=== PATIENT | female | born 1965 | race Caucasian/White ===

== ENCOUNTER → 2016-06-28 | Outpatient (CLI) | payer MEDICARE, MEDICAID ==
[~2016-06-28] MED LIST: /AMIT25TA NG; /FENT25PA TD; CELE20TA PO; CLARITAN PO; CLON-412 PO; COLA50CA3 PO; CRES20TA PO; HYDR-3719 PO; OPAN10TA17 PO; OXYC10TA97 PO; OXYC1TAB16 PO; OXYC5CAP2 PO; PREM0.626 PO; SOMA350T OR; SYNT150T OR; TRAM50TA2 OR; TRAM50TA2 PO; VICO5TAB PO
--- NOTE | 2016-07-14 01:27 | ECWPNPC ---
PATIENT NAME: APRIL PARMAR : 1965 GENDER: FEMALE VISIT DATE: 06/28/2016 DISCHARGE DATE: 06/28/16 1447 VISIT LOCKED DATE TIME: PHYSICIAN: JOHNATHON JOHN RESOURCE: JOHNATHON JOHN REASON FOR APPOINTMENT 1. LBP HISTORY OF PRESENT ILLNESS HISTORY OF PRESENT ILLNESS: HERE FOR ROUTINE F/U AND MANAGEMENT OF CHRONIC NECK AND LBP.RATING PAIN VAS 7/10.CURRENTLY USING OXYCODONE 15 MG Q4H PRN SEVERE PAIN MDD5.ALSO USING OXYCONTIN 15MG BID AND TIZANIDINE 4MG TID.MEDICATION IS HELPFUL. DENIES SIDE EFFECTS OF MEDICATION.CONTINUES TO RECIEVE INJECTION THERAPY FOR PELVIC PAIN.CHIEF AREA OF PAIN IS THORACIC SPINE. PAIN THE PATIENT DESCRIBES THE PAIN... THE PATIENT DESCRIBES THE PAIN... THE PATIENT DESCRIBES THE PAIN... THE PATIENT DESCRIBES THE PAIN... FALL RISK SCREENING: SCREENING :NO FALLS IN THE PAST YEAR CURRENT MEDICATIONS TAKING PREMARIN 0.625 MG TABLET 1 TABLET ORALLY ONCE DAILY TAKING SYNTHROID 150 MCG TABLET 1 TABLET ORALLY ONCE A DAY TAKING LIPITOR _ TABLET 1 TABLET ORALLY ONCE A DAY TAKING TIZANIDINE HCL 4 MG TABLET 1 TABLET NEEDED ORALLY THREE TIMES A DAY TAKING OXYCODONE HCL 15 MG TABLET 1 TABLET NEEDED ORALLY Q4-6H PRN PAIN MDD5 TAKING OXYCONTIN 15 MG TABLET EXTENDED RELEASE 12 HOUR 1 TABLET ORALLY TID TAKING ACCUTANE 40 MG CAPSULE ORALLY BID NOT-TAKING NUCYNTA ER 150 MG TABLET EXTENDED RELEASE 12 HOUR 1 TABLET ORALLY EVERY 12 HRS MDD2 NOT-TAKING TRAMADOL HCL ER 50 MG TABLET 1 TABLET ORALLY [id number] DISCONTINUED OXYCODONE HCL ER 15 MG TABLET ER 12 HOUR ABUSE-DETERRENT 1 TABLET ORALLY Q8H TID MDD3 MEDICATION LIST REVIEWED AND RECONCILED WITH THE PATIENT PAST MEDICAL HISTORY HEAD INJURY WITH SOME APHASIA DDD ALLERGIES LATEX (FOR ALLERGY USE ONLY): HIVES,TERRIBLE SORES: ALLERGY SOCIAL HISTORY GENERAL: TOBACCO USE ARE YOU A:NONSMOKER LEARNING BARRIERS / SPECIAL NEEDS ORIENTED TO PLAN OF CARE: PATIENT, PAIN MANAGEMENT PATIENT, ORIENTED TO PLAN OF CARE: PATIENT, PAIN MANAGEMENT PATIENT. NEW PATIENT PAIN DIARY TODAY'S VISITNOTES FROM 0-10, WHAT LEVEL IS YOUR PAIN TODAY?0 PAIN CLINIC PFS, CLERGY, PUBLIC HEALTH REFERRALS PFS REFERRAL NEEDED?NO CLERGY REFERRAL NEEDED?NO PUBLIC HEALTH REFERRAL NEEDED?NO WAS THE PROVIDER NOTIFIED OF ANY PERTINENT INFO?NO PFS REFERRAL NEEDED?NO CLERGY REFERRAL NEEDED?NO PUBLIC HEALTH REFERRAL NEEDED?NO WAS THE PROVIDER NOTIFIED OF ANY PERTINENT INFO?NO REVIEW OF SYSTEMS CONSTITUTIONAL: ANY CHANGE IN YOUR MEDICAL CONDITION? YES, NERVE IMPINGEMENT BILAT. SHOULDERS. SURGERY TO BE SCHEDULED IN [place] . CHILLS NO . FEVER NO . INFECTION: DO YOU HAVE NEW INFECTIONS? NO . DO YOU HAVE HISTORY OF MRSA? NO . MUSCULOSKELETAL: ANY NEW PATTERNS OF PAIN OR NUMBNESS? NO . GASTROENTEROLOGY: ANY NEW CHANGE IN BOWEL CONTROL? NO . GENITOURINARY: ANY NEW CHANGE IN BLADDER CONTROL? NO . IS THERE A CHANCE YOU COULD BE ? NO . HEMATOLOGY/LYMPH: DO YOU TAKE ANY BLOOD THINNERS? (FOR EXAMPLE- COUMADIN, PLAVIX, AGGRENOX, PLATEL, PRADAXA, OR XARELTO) NO . WHEN WAS YOUR LAST DOSE? DATE: TIME: . NEUROLOGY: HAVE YOU FALLEN IN THE PAST 6 MONTHS? NO . ANY NEW EXTREMITY NUMBNESS OR WEAKNESS? NO . CARDIOLOGY: DO YOU HAVE A PACEMAKER OR DEFIBRILLATOR? NO . RESPIRATORY: HAVE YOU BEEN SICK IN THE PAST WEEK? NO . FEVER NO . FLU LIKE SYMPTOMS? NO . COUGH NO . INTEGUMENTARY: DO YOU HAVE ANY RASHES OR OPEN SORES? NO . ALLERGIC/IMMUNO: ARE YOU ALLERGIC TO SHELLFISH OR IV DYE? NO . ANY NEW ALLERGIES? NO . PSYCHIATRIC: DO YOU HAVE THOUGHTS OF HURTING YOURSELF OR SOMEONE ELSE? NO . ARE YOU ABUSED, NEGLECTED, OR IN AN UNSAFE ENVIRONMENT? NO . ENDOCRINOLOGY: ARE YOU DIABETIC? NO . OTHER: DO YOU NEED ANY PRESCRIPTIONS? YES, OXYCONTIN AND OXYCODONE . IF YES, PLEASE LIST: ____ . ANY NEW PROBLEMS WITH YOUR MEDICATIONS? NO . WHEN DID YOU LAST EAT? ____ . WHEN DID YOU LAST DRINK? ____ . WHAT DID YOU LAST DRINK? ____ . NAME OF PERSON DRIVING YOU HOME? ____ . DO YOU HAVE ANY OTHER QUESTIONS OR CONCERNS NO . REVIEWED BY: PROVIDER: JOHNATHON ROSENBERG . VITAL SIGNS WT 173 LBS, HT 66 IN, BMI 27.92 INDEX, BP 128/83 MM HG, HR 67 /MIN, RR 16 /MIN, TEMP 97.9 F, OXYGEN SAT % 100, REVIEWED BY: AD. EXAMINATION GENERAL EXAMINATION: LUNGS:LUNG SOUNDS ARE CLEAR. HEART:HEART RATE REGULAR. MUSCULOSKELETAL:*. MUSCULOSKELETAL:*, MUSCLE STRENGTH TESTING 5/5 BILATERAL, PALPATION: POSITIVE FOR PAIN OVER L/S SPINE. POSITIVE FOR PAIN OVER L/S PARSPINALS. ASSESSMENTS POST LAMINECTOMY SYNDROME - M96.1 (PRIMARY) CHRONIC PRESCRIPTION OPIATE USE - Z79.891 TREATMENT POST LAMINECTOMY SYNDROME CONTINUE TIZANIDINE HCL TABLET, 4 MG, 1 TABLET NEEDED, ORALLY, THREE TIMES A DAY, 30 DAY(S), 90 TABLET, REFILLS 5 REFILL OXYCODONE HCL TABLET, 15 MG, 1 TABLET NEEDED, ORALLY, Q4-6H PRN PAIN MDD5, 30 DAY(S), 150, REFILLS 0 REFILL OXYCONTIN TABLET EXTENDED RELEASE 12 HOUR, 15 MG, 1 TABLET, ORALLY, TID MDD3, 30 DAY(S), 90, REFILLS 0 START OXYCODONE HCL ER TABLET ER 12 HOUR ABUSE-DETERRENT, 15 MG, 1 TABLET, ORALLY, Q8H TID MDD3, 30 DAY(S), 90, REFILLS 0 PROCEDURE CODES FA211 ESTABILISHED PATIENT [facility] CHARGE G8730 PAIN ASSESS POS TOOL F/U PLAN DOC G8427 DOC MEDS VERIFIED W/PT OR RE FOLLOW UP 2 MONTHS ELECTRONICALLY SIGNED BY SHAKIRA MCNAIR ON 07/12/2016 AT 11:05 AM EST DISCLAIMER : THIS IS A VISIT SUMMARY EXTRACTED FROM THE [facility] CHART. IT IS NOT A COPY OF THE [facility] PROGRESS NOTE. MTDD
== END ==
LOC: M PAIN 14:00
PROVIDERS: ATTEND Nurse Practitioner Family
DX: Z09 Encounter for follow-up examination after completed treatment for conditions other than malignant neoplasm (principal); G89.29 Other chronic pain; M96.1 Postlaminectomy syndrome, not elsewhere classified; M51.9 Unspecified thoracic, thoracolumbar and lumbosacral intervertebral disc disorder; Z91.040 Latex allergy status; Z79.891 Long term (current) use of opiate analgesic; Z79.899 Other long term (current) drug therapy; Z87.820 Personal history of traumatic brain injury

== ENCOUNTER → 2016-08-26 | Outpatient (CLI) | payer MEDICARE, MEDICAID ==
[2016-08-26 11:37] LABS: ALBUMIN/GLOBULIN RATIO 1.05 (1.00-1.93); ALKALINE PHOSPHATASE 156 U/L (45-117); ALT/SGPT 22 U/L (12-78); ANION GAP 9 MEQ/L (8-16); AST/SGOT 20 U/L (15-37); BILIRUBIN,TOTAL 0.4 MG/DL (0.2-1.0); BLOOD UREA NITROGEN 20 MG/DL (7-18); CALCIUM LEVEL 9.4 MG/DL (8.5-10.1); CARBON DIOXIDE LEVEL 30 MEQ/L (21-32); CHLORIDE LEVEL 102 MEQ/L (98-107); CREATININE FOR GFR 0.65 MG/DL (0.55-1.02); GLOMERULAR FILTRATION RATE > 60.0 (>51); GLUCOSE, FASTING 94 MG/DL (70-105); POTASSIUM SERUM 4.5 MEQ/L (3.5-5.1); SODIUM LEVEL 141 MEQ/L (136-145); TOTAL PROTEIN 7.8 GM/DL (6.4-8.2); TRIGLYCERIDES LEVEL 243 MG/DL (<150)
== END ==
LOC: M LAB 10:23
PROVIDERS: ATTEND Dermatology
DX: Z79.899 Other long term (current) drug therapy (principal)

== ENCOUNTER → 2016-09-06 | Outpatient (CLI) | payer MEDICARE, MEDICAID ==
--- NOTE | 2016-09-14 01:33 | ECWPNPC ---
PATIENT NAME: APRIL PARMAR : 1965 GENDER: FEMALE VISIT DATE: 09/06/2016 DISCHARGE DATE: 09/06/16 1529 VISIT LOCKED DATE TIME: PHYSICIAN: JOHNATHON JOHN RESOURCE: JOHNATHON JOHN REASON FOR APPOINTMENT 1. BACK HISTORY OF PRESENT ILLNESS HISTORY OF PRESENT ILLNESS: HERE FOR ROUTINE F/U AND MANAGEMENT OF CHRONIC NECK AND LBP.RATING PAIN VAS 6/10.CURRENTLY USING OXYCODONE 15 MG Q4H PRN SEVERE PAIN MDD5.ALSO USING OXYCONTIN 15MG BID AND TIZANIDINE 4MG TID.MEDICATION IS ONLY MARGINALLY HELPFUL AND FINDS HER PAIN UNBEARABLE IN LATE AFTERNOON. DENIES SIDE EFFECTS OF MEDICATION.CONTINUES TO RECIEVE INJECTION THERAPY FOR PELVIC PAIN.PATIENT IS INTERESTED IN BEING EVALUATED FOR MEDICAL MARIJUANA. PAIN THE PATIENT DESCRIBES THE PAIN... THE PATIENT DESCRIBES THE PAIN... THE PATIENT DESCRIBES THE PAIN... THE PATIENT DESCRIBES THE PAIN... THE PATIENT DESCRIBES THE PAIN... FALL RISK SCREENING: SCREENING :NO FALLS IN THE PAST YEAR CURRENT MEDICATIONS TAKING PREMARIN 0.625 MG TABLET 1 TABLET ORALLY ONCE DAILY TAKING SYNTHROID 150 MCG TABLET 1 TABLET ORALLY ONCE A DAY TAKING LIPITOR _ TABLET 1 TABLET ORALLY ONCE A DAY TAKING TIZANIDINE HCL 4 MG TABLET 1 TABLET NEEDED ORALLY THREE TIMES A DAY TAKING OXYCONTIN 15 MG TABLET EXTENDED RELEASE 12 HOUR 1 TABLET ORALLY TID MDD3 TAKING OXYCODONE HCL 15 MG TABLET 1 TABLET NEEDED ORALLY Q4-6H PRN PAIN MDD5 TAKING OXYCODONE HCL ER 15 MG TABLET ER 12 HOUR ABUSE-DETERRENT 1 TABLET ORALLY Q8H TID MDD3 TAKING ACCUTANE 30 MGS 1 TAB ORAL BID NOT-TAKING OXYCODONE HCL ER 15 MG TABLET ER 12 HOUR ABUSE-DETERRENT 1 TABLET ORALLY Q8H TID MDD3 NOT-TAKING NUCYNTA ER 150 MG TABLET EXTENDED RELEASE 12 HOUR 1 TABLET ORALLY EVERY 12 HRS MDD2 NOT-TAKING TRAMADOL HCL ER 50 MG TABLET 1 TABLET ORALLY [id number] DISCONTINUED ACCUTANE 40 MG CAPSULE ORALLY BID DISCONTINUED OXYCONTIN 15 MG TABLET ER 12 HOUR ABUSE-DETERRENT 1 TABLET ORALLY Q8H TID MDD3 DISCONTINUED ACCUTANE 1 TAB ORAL DISCONTINUED OXYCODONE HCL 15 MG TABLET 1 TABLET NEEDED ORALLY 5 X/ DAY PRN MEDICATION LIST REVIEWED AND RECONCILED WITH THE PATIENT PAST MEDICAL HISTORY HEAD INJURY WITH SOME APHASIA DDD DJD ALLERGIES LATEX (FOR ALLERGY USE ONLY): HIVES,TERRIBLE SORES: ALLERGY SOCIAL HISTORY GENERAL: TOBACCO USE ARE YOU A:NONSMOKER LEARNING BARRIERS / SPECIAL NEEDS ORIENTED TO PLAN OF CARE: PATIENT, PAIN MANAGEMENT PATIENT, ORIENTED TO PLAN OF CARE: PATIENT, PAIN MANAGEMENT PATIENT. NEW PATIENT PAIN DIARY TODAY'S VISITNOTES FROM 0-10, WHAT LEVEL IS YOUR PAIN TODAY?0 PAIN CLINIC PFS, CLERGY, PUBLIC HEALTH REFERRALS PFS REFERRAL NEEDED?NO CLERGY REFERRAL NEEDED?NO PUBLIC HEALTH REFERRAL NEEDED?NO WAS THE PROVIDER NOTIFIED OF ANY PERTINENT INFO?NO PFS REFERRAL NEEDED?NO CLERGY REFERRAL NEEDED?NO PUBLIC HEALTH REFERRAL NEEDED?NO WAS THE PROVIDER NOTIFIED OF ANY PERTINENT INFO?NO REVIEW OF SYSTEMS CONSTITUTIONAL: ANY CHANGE IN YOUR MEDICAL CONDITION? YES DIAGNOSED WITH DJD . CHILLS NO . FEVER NO . INFECTION: DO YOU HAVE NEW INFECTIONS? NO . DO YOU HAVE HISTORY OF MRSA? NO . MUSCULOSKELETAL: ANY NEW PATTERNS OF PAIN OR NUMBNESS? YES, INCREASED PAIN IN JOINTS ALL OVER . GASTROENTEROLOGY: ANY NEW CHANGE IN BOWEL CONTROL? NO . GENITOURINARY: ANY NEW CHANGE IN BLADDER CONTROL? NO . IS THERE A CHANCE YOU COULD BE ? NO . HEMATOLOGY/LYMPH: DO YOU TAKE ANY BLOOD THINNERS? (FOR EXAMPLE- COUMADIN, PLAVIX, AGGRENOX, PLATEL, PRADAXA, OR XARELTO) NO . WHEN WAS YOUR LAST DOSE? DATE: TIME: . NEUROLOGY: HAVE YOU FALLEN IN THE PAST 6 MONTHS? YES IN JUNE--HIT HEAD WITH LOC SEEN IN ER IN [place] . ANY NEW EXTREMITY NUMBNESS OR WEAKNESS? NO . CARDIOLOGY: DO YOU HAVE A PACEMAKER OR DEFIBRILLATOR? NO . RESPIRATORY: HAVE YOU BEEN SICK IN THE PAST WEEK? NO . FEVER NO . FLU LIKE SYMPTOMS? NO . COUGH NO . INTEGUMENTARY: DO YOU HAVE ANY RASHES OR OPEN SORES? NO . ALLERGIC/IMMUNO: ARE YOU ALLERGIC TO SHELLFISH OR IV DYE? NO . ANY NEW ALLERGIES? NO . PSYCHIATRIC: DO YOU HAVE THOUGHTS OF HURTING YOURSELF OR SOMEONE ELSE? NO . ARE YOU ABUSED, NEGLECTED, OR IN AN UNSAFE ENVIRONMENT? NO . ENDOCRINOLOGY: ARE YOU DIABETIC? NO . OTHER: DO YOU NEED ANY PRESCRIPTIONS? YES . IF YES, PLEASE LIST: ____OXYCODONE, OXYCONTIN AND TIZANIDINE . ANY NEW PROBLEMS WITH YOUR MEDICATIONS? NO . WHEN DID YOU LAST EAT? ____ . WHEN DID YOU LAST DRINK? ____ . WHAT DID YOU LAST DRINK? ____ . NAME OF PERSON DRIVING YOU HOME? ____ . DO YOU HAVE ANY OTHER QUESTIONS OR CONCERNS NO . REVIEWED BY: PROVIDER: JOHNATHON ROSENBERG . VITAL SIGNS WT 177.6 LBS, HT 66 IN, BMI 28.66 INDEX, BP 140/74 MM HG, HR 75 /MIN, RR 18 /MIN, TEMP 97.5 F, OXYGEN SAT % 97, NA INITIALS HS, REVIEWED BY: AD. EXAMINATION GENERAL EXAMINATION: LUNGS:LUNG SOUNDS ARE CLEAR. HEART:HEART RATE REGULAR. MUSCULOSKELETAL:*. MUSCULOSKELETAL:*, MUSCLE STRENGTH TESTING 5/5 BILATERAL, PALPATION: POSITIVE FOR PAIN OVER L/S SPINE. POSITIVE FOR PAIN OVER L/S PARSPINALS. ASSESSMENTS POST LAMINECTOMY SYNDROME - M96.1 (PRIMARY) CHRONIC PRESCRIPTION OPIATE USE - Z79.891 TREATMENT POST LAMINECTOMY SYNDROME CONTINUE TIZANIDINE HCL TABLET, 4 MG, 1 TABLET NEEDED, ORALLY, THREE TIMES A DAY REFILL OXYCODONE HCL TABLET, 15 MG, 1 TABLET NEEDED, ORALLY, Q4-6H PRN PAIN MDD5, 30 DAY(S), 150, REFILLS 0 START GABAPENTIN CAPSULE, 100 MG, DIRECTED, ORALLY, Q8H, 30 DAY(S), 90, REFILLS 2 START OXYCODONE HCL ER TABLET ER 12 HOUR ABUSE-DETERRENT, 15 MG, 1 TABLET, ORALLY, Q8H MDD3, 30 DAY(S), 90, REFILLS 0 REFERRAL TO: [facility] REASON:EVALUATION FOR MEDICAL MARIJUANA-DX POST LAMINECTOMY PAIN SYNDROME/CHRONIC OPIODS INEFFECTIVE PREVENTIVE MEDICINE PAIN CLINIC TEACHING: MEDITATION PRINTED INFORMATION ON GABAPENTIN GIVEN TO AND EXPLAINED TO PATIENT AND SHE VERBALIZED UNDERSTANDIN.. PROCEDURE CODES FA211 ESTABILISHED PATIENT [facility] FACILITY CHARGE G8730 PAIN ASSESS POS TOOL F/U PLAN DOC G8427 DOC MEDS VERIFIED W/PT OR RE DISPOSITION & COMMUNICATION FOLLOW UP 6 WEEKS ELECTRONICALLY SIGNED BY SHAKIRA MCNAIR ON 09/13/2016 AT 05:50 PM EDT DISCLAIMER : THIS IS A VISIT SUMMARY EXTRACTED FROM THE [facility] CHART. IT IS NOT A COPY OF THE [employer] PROGRESS NOTE. MTDD
== END ==
LOC: M PAIN 14:20
PROVIDERS: ATTEND Nurse Practitioner Family
DX: Z09 Encounter for follow-up examination after completed treatment for conditions other than malignant neoplasm (principal); M96.1 Postlaminectomy syndrome, not elsewhere classified; R47.01 Aphasia; Z91.040 Latex allergy status; M19.90 Unspecified osteoarthritis, unspecified site; Z79.891 Long term (current) use of opiate analgesic; Z79.899 Other long term (current) drug therapy; Z87.820 Personal history of traumatic brain injury

== ENCOUNTER → 2017-01-04 | Outpatient (CLI) | payer MEDICARE, MEDICAID ==
--- NOTE | 2017-01-21 00:23 | ECWPNPC ---
PATIENT NAME: APRIL PARMAR : 1965 GENDER: FEMALE VISIT DATE: 01/04/2017 DISCHARGE DATE: 01/04/17 1534 VISIT LOCKED DATE TIME: PHYSICIAN: JOHNATHON JOHN RESOURCE: JOHNATHON JOHN REASON FOR APPOINTMENT 1. BACK HISTORY OF PRESENT ILLNESS HISTORY OF PRESENT ILLNESS: HERE FOR ROUTINE F/U AND MANAGEMENT OF CHRONIC NECK AND LBP.RATING PAIN VAS 7/10.AT HER LAST VISIT WE INCREASED OXYCONTIN TO 15MG TID AND STARTED ON GABAPENTIN 100MG TID.STOPPED GABAPENTIN IT WAS CAUSING TOO MUCH FATIGUE. ALSO USING TIZANIDINE 4MG TID AND OXYCODONE 15MG Q4-6H PRN FOR SEVERE PAIN WITH MDD 5..DENIES SIDE EFFECTS OF MEDICATION.CONTINUES TO RECIEVE INJECTION THERAPY FOR PELVIC PAIN.PATIENT WAS EVALUATED FOR MEDICAL MARIJUANA AND CURRENTLY USING THIS AT WITH IMPROVED SLEEP. PAIN THE PATIENT DESCRIBES THE PAIN... THE PATIENT DESCRIBES THE PAIN... THE PATIENT DESCRIBES THE PAIN... THE PATIENT DESCRIBES THE PAIN... THE PATIENT DESCRIBES THE PAIN... THE PATIENT DESCRIBES THE PAIN... FALL RISK SCREENING: SCREENING :NO FALLS IN THE PAST YEAR CURRENT MEDICATIONS TAKING PREMARIN 0.625 MG TABLET 1 TABLET ORALLY ONCE DAILY TAKING SYNTHROID 150 MCG TABLET 1 TABLET ORALLY ONCE A DAY TAKING LIPITOR _ TABLET 1 TABLET ORALLY ONCE A DAY TAKING TIZANIDINE HCL 4 MG TABLET 1 TABLET NEEDED ORALLY THREE TIMES A DAY TAKING OXYCODONE HCL 15 MG TABLET 1 TABLET NEEDED ORALLY Q4-6H PRN PAIN MDD5 TAKING OXYCONTIN 15 MG TABLET EXTENDED RELEASE 12 HOUR 1 TABLET ORALLY TID MDD3 NOT-TAKING OXYCODONE HCL ER 15 MG TABLET ER 12 HOUR ABUSE-DETERRENT 1 TABLET ORALLY Q8H TID MDD3 NOT-TAKING ACCUTANE 30 MGS 1 TAB ORAL BID NOT-TAKING GABAPENTIN 100 MG CAPSULE DIRECTED ORALLY Q8H NOT-TAKING OXYCODONE HCL ER 15 MG TABLET ER 12 HOUR ABUSE-DETERRENT 1 TABLET ORALLY Q8H MDD3 NOT-TAKING OXYCODONE HCL ER 15 MG TABLET ER 12 HOUR ABUSE-DETERRENT 1 TABLET ORALLY Q8H TID MDD3 NOT-TAKING OXYCODONE HCL ER 15 MG TABLET ER 12 HOUR ABUSE-DETERRENT 1 TABLET ORALLY Q8H TID MDD3 NOT-TAKING OXYCODONE HCL ER 15 MG TABLET ER 12 HOUR ABUSE-DETERRENT 1 TABLET ORALLY Q8H MDD3 NOT-TAKING OXYCODONE HCL ER 15 MG TABLET ER 12 HOUR ABUSE-DETERRENT 1 TABLET ORALLY Q8H TID MDD3 NOT-TAKING NUCYNTA ER 150 MG TABLET EXTENDED RELEASE 12 HOUR 1 TABLET ORALLY EVERY 12 HRS MDD2 NOT-TAKING TRAMADOL HCL ER 50 MG TABLET 1 TABLET ORALLY [id number] MEDICATION LIST REVIEWED AND RECONCILED WITH THE PATIENT PAST MEDICAL HISTORY HEAD INJURY WITH SOME APHASIA DDD DJD ALLERGIES LATEX (FOR ALLERGY USE ONLY): HIVES,TERRIBLE SORES: ALLERGY SURGICAL HISTORY NECK FUSION 11/07/15 RIGHT KNEE ARTHROSCOPY RIGHT WRIST CARPAL TUNNEL RIGHT SHOULDER CARTILAGE CHOLECYSTECTOMY HYSTERECTOMY 4 C SECTIONS ABD INCISION REPAIR BACK SURGERY X3 DCS PLACED/REMOVED REVIEW OF SYSTEMS REVIEWED BY: PROVIDER: JOHNATHON ROSENBERG . CONSTITUTIONAL: ANY CHANGE IN YOUR MEDICAL CONDITION? NO . CHILLS NO . FEVER NO . INFECTION: DO YOU HAVE NEW INFECTIONS? NO . DO YOU HAVE HISTORY OF MRSA? NO . MUSCULOSKELETAL: ANY NEW PATTERNS OF PAIN OR NUMBNESS? NO . GASTROENTEROLOGY: ANY NEW CHANGE IN BOWEL CONTROL? NO . GENITOURINARY: ANY NEW CHANGE IN BLADDER CONTROL? NO . IS THERE A CHANCE YOU COULD BE ? NO . HEMATOLOGY/LYMPH: DO YOU TAKE ANY BLOOD THINNERS? (FOR EXAMPLE- COUMADIN, PLAVIX, AGGRENOX, PLATEL, PRADAXA, OR XARELTO) NO . WHEN WAS YOUR LAST DOSE? DATE: TIME: . NEUROLOGY: HAVE YOU FALLEN IN THE PAST 6 MONTHS? NO . ANY NEW EXTREMITY NUMBNESS OR WEAKNESS? NO . CARDIOLOGY: DO YOU HAVE A PACEMAKER OR DEFIBRILLATOR? NO . RESPIRATORY: HAVE YOU BEEN SICK IN THE PAST WEEK? NO . FEVER NO . FLU LIKE SYMPTOMS? NO . COUGH NO . INTEGUMENTARY: DO YOU HAVE ANY RASHES OR OPEN SORES? NO . ALLERGIC/IMMUNO: ARE YOU ALLERGIC TO SHELLFISH OR IV DYE? NO . ANY NEW ALLERGIES? NO . PSYCHIATRIC: DO YOU HAVE THOUGHTS OF HURTING YOURSELF OR SOMEONE ELSE? NO . ARE YOU ABUSED, NEGLECTED, OR IN AN UNSAFE ENVIRONMENT? NO . ENDOCRINOLOGY: ARE YOU DIABETIC? NO . OTHER: DO YOU NEED ANY PRESCRIPTIONS? YES, OXYCODONE, OXYCONTIN, TIZANIDINE . IF YES, PLEASE LIST: ____ . ANY NEW PROBLEMS WITH YOUR MEDICATIONS? NO . WHEN DID YOU LAST EAT? ____ . WHEN DID YOU LAST DRINK? ____ . WHAT DID YOU LAST DRINK? ____ . NAME OF PERSON DRIVING YOU HOME? ____ . DO YOU HAVE ANY OTHER QUESTIONS OR CONCERNS NO . VITAL SIGNS WT 175 LBS, HT 66 IN, BMI 28.24 INDEX, BP 117/72 MM HG, HR 82 /MIN, RR 18 /MIN, TEMP 98.1 F, OXYGEN SAT % 93, SAFE IN ENV? (Y/N) Y, REVIEWED BY: EM. EXAMINATION GENERAL EXAMINATION: LUNGS:LUNG SOUNDS ARE CLEAR. HEART:HEART RATE REGULAR. MUSCULOSKELETAL:*. MUSCULOSKELETAL:*, MUSCLE STRENGTH TESTING 5/5 BILATERAL, PALPATION: POSITIVE FOR PAIN OVER L/S SPINE. POSITIVE FOR PAIN OVER L/S PARSPINALS. ASSESSMENTS POST LAMINECTOMY SYNDROME - M96.1 (PRIMARY) CHRONIC PRESCRIPTION OPIATE USE - Z79.891 TREATMENT POST LAMINECTOMY SYNDROME REFILL TIZANIDINE HCL TABLET, 4 MG, 1 TABLET NEEDED, ORALLY, THREE TIMES A DAY, 30 DAY(S), 90 TABLET, REFILLS 2 REFILL OXYCODONE HCL TABLET, 15 MG, 1 TABLET NEEDED, ORALLY, Q4-6H PRN PAIN MDD5, 30 DAY(S), 150, REFILLS 0 REFILL OXYCODONE HCL ER TABLET ER 12 HOUR ABUSE-DETERRENT, 15 MG, 1 TABLET, ORALLY, Q8H TID MDD3, 30 DAY(S), 90, REFILLS 0 NOTES: ISTOP REGISTRY REVIEWED AND DEMNOSTRATES COMPLLIANCE. BRINGS IN MEDICATIONS WHICH IS APPROPRIATE FOR WHAT WAS DISPENSED. RECENT URINE TOXICOLOGY REVIEWED. NO UNAUTHORIZED MEDICATIONS. NO ILLICIT SUBSTANCES AND PRESCRIBED MEDICATIONS WERE PRESENT. URINE TOX TODAY, RISKS AND BENEFITS OF NARCOTIC/OPIOD MEDICATIONS WERE REVIEWED WITH PATIENT - THIS INCLUDES BUT IS NOT LIMITED TO RISK OF DEPENDANCE/DEVELOPMENT OF ADDICTION, MOOD DISTURBANCE AND DEPRESSION, OSTEOPOROSIS, HORMONAL AND LABIDAL CHANGES, RESPIRATORY DEPRESSION AND . PATIENT IS ADVISED NOT TO DRIVE WHILE ON THESE MEDICATIONS. PROCEDURE CODES FA211 ESTABILISHED PATIENT [facility] FACILITY CHARGE Z8272 PAIN ASSESS POS TOOL F/U PLAN DOC G8427 DOC MEDS VERIFIED W/PT OR RE DISPOSITION & COMMUNICATION FOLLOW UP 2 MONTHS ELECTRONICALLY SIGNED BY SHAKIRA MCNAIR ON 01/20/2017 AT 05:41 PM EDT DISCLAIMER : THIS IS A VISIT SUMMARY EXTRACTED FROM THE [employer] CHART. IT IS NOT A COPY OF THE [employer] PROGRESS NOTE. IVY
== END ==
LOC: M PAIN 14:40
PROVIDERS: ATTEND Nurse Practitioner Family
DX: M96.1 Postlaminectomy syndrome, not elsewhere classified (principal); M54.2 Cervicalgia; M54.5 Low back pain; Z91.040 Latex allergy status; Z79.891 Long term (current) use of opiate analgesic; Z79.899 Other long term (current) drug therapy

== ENCOUNTER → 2017-03-07 | Outpatient (CLI) | payer MEDICARE, MEDICAID ==
--- NOTE | 2017-03-27 00:02 | ECWPNPC ---
PATIENT NAME: APRIL PARMAR : 1965 GENDER: FEMALE VISIT DATE: 03/07/2017 DISCHARGE DATE: 03/07/17 1441 VISIT LOCKED DATE TIME: PHYSICIAN: JOHNATHON JOHN RESOURCE: JOHNATHON JOHN REASON FOR APPOINTMENT 1. BACK HISTORY OF PRESENT ILLNESS HISTORY OF PRESENT ILLNESS: HERE FOR ROUTINE F/U AND MANAGEMENT OF CHRONIC NECK AND LBP.RATING PAIN VAS 6/10.AT HER LAST VISIT WE INCREASED OXYCONTIN TO 15MG TID AND STARTED ON GABAPENTIN 100MG TID.STOPPED GABAPENTIN IT WAS CAUSING TOO MUCH FATIGUE. ALSO USING TIZANIDINE 4MG TID AND OXYCODONE 15MG Q4-6H PRN FOR SEVERE PAIN WITH MDD 5..DENIES SIDE EFFECTS OF MEDICATION.CONTINUES TO RECIEVE INJECTION THERAPY FOR PELVIC PAIN.PATIENT WAS EVALUATED FOR MEDICAL MARIJUANA AND HAD IMPROVED SLEEP BUT WAS UNABLE TO GET TO DISPENSERY IN [place] MONTHLY AND PRODUCT WAS TOO COSTLY.REPORTING POOR SLEEP DUE TO PAIN. PAIN THE PATIENT DESCRIBES THE PAIN... THE PATIENT DESCRIBES THE PAIN... THE PATIENT DESCRIBES THE PAIN... THE PATIENT DESCRIBES THE PAIN... THE PATIENT DESCRIBES THE PAIN... THE PATIENT DESCRIBES THE PAIN... THE PATIENT DESCRIBES THE PAIN... FALL RISK SCREENING: SCREENING :NO FALLS IN THE PAST YEAR CURRENT MEDICATIONS TAKING PREMARIN 0.625 MG TABLET 1 TABLET ORALLY ONCE DAILY TAKING SYNTHROID 150 MCG TABLET 1 TABLET ORALLY ONCE A DAY TAKING LIPITOR _ TABLET 1 TABLET ORALLY ONCE A DAY TAKING TIZANIDINE HCL 4 MG TABLET 1 TABLET NEEDED ORALLY THREE TIMES A DAY TAKING OXYCONTIN 15 MG TABLET ER 12 HOUR ABUSE-DETERRENT 1 TABLET ORALLY EVERY 8 HRS CHRONIC PAIN MDD=3 TAKING OXYCODONE HCL 15 MG TABLET 1 TABLET NEEDED ORALLY Q4-6H PRN PAIN MDD5 NOT-TAKING OXYCONTIN 15 MG TABLET EXTENDED RELEASE 12 HOUR 1 TABLET ORALLY TID MDD3 NOT-TAKING OXYCODONE HCL ER 15 MG TABLET ER 12 HOUR ABUSE-DETERRENT 1 TABLET ORALLY Q8H TID MDD3 NOT-TAKING ACCUTANE 30 MGS 1 TAB ORAL BID NOT-TAKING GABAPENTIN 100 MG CAPSULE DIRECTED ORALLY Q8H NOT-TAKING OXYCODONE HCL ER 15 MG TABLET ER 12 HOUR ABUSE-DETERRENT 1 TABLET ORALLY Q8H MDD3 NOT-TAKING OXYCODONE HCL ER 15 MG TABLET ER 12 HOUR ABUSE-DETERRENT 1 TABLET ORALLY Q8H TID MDD3 NOT-TAKING OXYCODONE HCL ER 15 MG TABLET ER 12 HOUR ABUSE-DETERRENT 1 TABLET ORALLY Q8H TID MDD3 NOT-TAKING OXYCODONE HCL ER 15 MG TABLET ER 12 HOUR ABUSE-DETERRENT 1 TABLET ORALLY Q8H MDD3 NOT-TAKING OXYCODONE HCL ER 15 MG TABLET ER 12 HOUR ABUSE-DETERRENT 1 TABLET ORALLY Q8H TID MDD3 NOT-TAKING NUCYNTA ER 150 MG TABLET EXTENDED RELEASE 12 HOUR 1 TABLET ORALLY EVERY 12 HRS MDD2 NOT-TAKING TRAMADOL HCL ER 50 MG TABLET 1 TABLET ORALLY [id number] MEDICATION LIST REVIEWED AND RECONCILED WITH THE PATIENT PAST MEDICAL HISTORY HEAD INJURY WITH SOME APHASIA DDD DJD ALLERGIES LATEX (FOR ALLERGY USE ONLY): HIVES,TERRIBLE SORES: ALLERGY SOCIAL HISTORY GENERAL: TOBACCO USE ARE YOU A:NONSMOKER CAFFEINE CAFFEINE USE?YES HOW OFTEN AND HOW MUCH? MINIMAL TENRIISM [id number] NONE LANGUAGE LANGUAGES SPOKEN:[place] LEARNING BARRIERS / SPECIAL NEEDS BARRIERS TO LEARNING?NO HEARING IMPAIRED?NO VISION IMPAIRED?YES :CORRECTIVE LENSES COGNITIVELY IMPAIRED?NO READINESS TO LEARN?YES LEARNING PREFERENCES?NO LEARNING CAPABILITIES PRESENT?YES EMOTIONAL BARRIERS?NO SPECIAL DEVICES?NO LOCKER ATTENDANT NEEDED?NO PAIN CLINIC PFS, CLERGY, PUBLIC HEALTH REFERRALS PFS REFERRAL NEEDED?NO CLERGY REFERRAL NEEDED?NO PUBLIC HEALTH REFERRAL NEEDED?NO WAS THE PROVIDER NOTIFIED OF ANY PERTINENT INFO?YES HAS THE PATIENT BEEN EDUCATED REGARDING HIS/HER PLAN OF CARE?YES HAS THE PATIENT BEEN EDUCATED REGARDING PAIN, THE RISK FOR PAIN, THE IMPORTANCE OF EFFECTIVE PAIN MANAGEMENT, AND THE PAIN ASSESSMENT PROCESS?YES REVIEWED BY: DS. ADVANCE DIRECTIVES HEALTH CARE PROXY?NO WOULD YOU LIKE MORE INFORMATION?NO DO YOU HAVE A DNR?NO WOULD YOU LIKE MORE INFORMATION?NO LIVING WILL?NO WOULD YOU LIKE MORE INFORMATION?NO POWER OF CRM ANALYST?NO WOULD YOU LIKE MORE INFORMATION?NO REVIEW OF SYSTEMS REVIEWED BY: PROVIDER: JOHNATHON ROSENBERG . CONSTITUTIONAL: ANY CHANGE IN YOUR MEDICAL CONDITION? NO . CHILLS NO . FEVER NO . INFECTION: DO YOU HAVE NEW INFECTIONS? NO . DO YOU HAVE HISTORY OF MRSA? NO . MUSCULOSKELETAL: ANY NEW PATTERNS OF PAIN OR NUMBNESS? NO . GASTROENTEROLOGY: ANY NEW CHANGE IN BOWEL CONTROL? NO . GENITOURINARY: ANY NEW CHANGE IN BLADDER CONTROL? NO . IS THERE A CHANCE YOU COULD BE ? NO . HEMATOLOGY/LYMPH: DO YOU TAKE ANY BLOOD THINNERS? (FOR EXAMPLE- COUMADIN, PLAVIX, AGGRENOX, PLATEL, PRADAXA, OR XARELTO) NO . WHEN WAS YOUR LAST DOSE? DATE: TIME: . NEUROLOGY: HAVE YOU FALLEN IN THE PAST 6 MONTHS? YES . ANY NEW EXTREMITY NUMBNESS OR WEAKNESS? NO . CARDIOLOGY: DO YOU HAVE A PACEMAKER OR DEFIBRILLATOR? NO . RESPIRATORY: HAVE YOU BEEN SICK IN THE PAST WEEK? NO . FEVER NO . FLU LIKE SYMPTOMS? NO . COUGH NO . INTEGUMENTARY: DO YOU HAVE ANY RASHES OR OPEN SORES? NO . ALLERGIC/IMMUNO: ARE YOU ALLERGIC TO SHELLFISH OR IV DYE? NO . ANY NEW ALLERGIES? NO . PSYCHIATRIC: DO YOU HAVE THOUGHTS OF HURTING YOURSELF OR SOMEONE ELSE? NO . ARE YOU ABUSED, NEGLECTED, OR IN AN UNSAFE ENVIRONMENT? NO . ENDOCRINOLOGY: ARE YOU DIABETIC? NO . OTHER: DO YOU NEED ANY PRESCRIPTIONS? YES . IF YES, PLEASE LIST: ____ . ANY NEW PROBLEMS WITH YOUR MEDICATIONS? NO . WHEN DID YOU LAST EAT? ____ . WHEN DID YOU LAST DRINK? ____ . WHAT DID YOU LAST DRINK? ____ . NAME OF PERSON DRIVING YOU HOME? ____ . DO YOU HAVE ANY OTHER QUESTIONS OR CONCERNS NO . VITAL SIGNS WT 170 LBS, HT 66 IN, BMI 27.44 INDEX, BP 119/73 MM HG, HR 65 /MIN, RR 18 /MIN, TEMP 97.3 F, OXYGEN SAT % 96%, NA INITIALS AW 1343, REVIEWED BY: CS. EXAMINATION GENERAL EXAMINATION: LUNGS:LUNG SOUNDS ARE CLEAR. HEART:HEART RATE REGULAR. MUSCULOSKELETAL:*. MUSCULOSKELETAL:*, MUSCLE STRENGTH TESTING 5/5 BILATERAL, PALPATION: POSITIVE FOR PAIN OVER L/S SPINE. POSITIVE FOR PAIN OVER L/S PARSPINALS. ASSESSMENTS POST LAMINECTOMY SYNDROME - M96.1 (PRIMARY) CHRONIC PRESCRIPTION OPIATE USE - Z79.891 TREATMENT POST LAMINECTOMY SYNDROME CONTINUE TIZANIDINE HCL TABLET, 4 MG, 1 TABLET NEEDED, ORALLY, THREE TIMES A DAY REFILL OXYCONTIN TABLET ER 12 HOUR ABUSE-DETERRENT, 15 MG, 1 TABLET, ORALLY, EVERY 8 HRS CHRONIC PAIN MDD=3, 30 DAY(S), 90, REFILLS 0 REFILL OXYCODONE HCL TABLET, 15 MG, 1 TABLET NEEDED, ORALLY, Q4-6H PRN PAIN MDD5, 30 DAY(S), 150, REFILLS 0 START TRAZODONE HCL TABLET, 50 MG, 1 TABLET AT BEDTIME NEEDED, ORALLY, ONCE A DAY, 30 DAY(S), 30, REFILLS 1 NOTES: ISTOP REGISTRY REVIEWED AND DEMNOSTRATES COMPLLIANCE. BRINGS IN MEDICATIONS WHICH IS APPROPRIATE FOR WHAT WAS DISPENSED. RECENT URINE TOXICOLOGY REVIEWED. NO UNAUTHORIZED MEDICATIONS. NO ILLICIT SUBSTANCES AND PRESCRIBED MEDICATIONS WERE PRESENT. , RISKS AND BENEFITS OF NARCOTIC/OPIOD MEDICATIONS WERE REVIEWED WITH PATIENT - THIS INCLUDES BUT IS NOT LIMITED TO RISK OF DEPENDANCE/DEVELOPMENT OF ADDICTION, MOOD DISTURBANCE AND DEPRESSION, OSTEOPOROSIS, HORMONAL AND LABIDAL CHANGES, RESPIRATORY DEPRESSION AND . PATIENT IS ADVISED NOT TO DRIVE WHILE ON THESE MEDICATIONS, #128 - SCREENING BMI AND F/U PLAN IN : BMI ABOVE NORMAL TODAY. DISCUSSED WITH PATIENT NUTRITIONAL FOOD CHOICES TO ASSIST WITH WEIGHT LOSS. RECCOMMENDED REDUCING SALT, SUGAR, SODA INTAKE. RECOMMEND INCREASE ACTIVITY TO INCLUDE WALKING ON A REGULAR BASIS. PROFESSIONAL NUTRITIONAL NUTRITIONAL GUIDANCE WAS OFFERED AND WAS DECLINED. , PATIENT WAS ADVISED TO START A WALKING PROGRAM TO STRENGTHEN LUMBAR PARASPINAL MUSCLES AND IMPROVE MOBILITY. THEY WERE ADVISED THAT THIS WILL IMPROVE WEIGHT LOSS AND ALSO DEPRESSION/FIBROMYALGIA SYMPTOMS. ADVISED TO WALK 10 MINUTES EVERY OTHER DAY ON A FLAT SURFACE. EMPHASIZED THE IMPORTANCE OF DOING THIS CONSISTANTLY AND NOT SPORATICALLY TO AVOID INJURY. STRONG ADVISED NOT TO DO MORE THAN 10 MINUTES EVERY OTHER DAY FOR THE FIRST 4 WEEKS. PREVENTIVE MEDICINE PAIN CLINIC TEACHING: MEDICATIONS TRAZADONE TEACHING DONE. ADDITIONAL INFORMATION GIVEN AND PATIENT VERBALIZES UNDERSTANDING.. PROCEDURE CODES FA211 ESTABILISHED PATIENT [facility] FACILITY CHARGE G8783 BP SCR PRFRM RCMDD DEFIND SCR INTVL 3016F PT SCRND UNHLTHY [place] USE 1124F ACP DISCUSS-NO [id number] DOCD 1036F TOBACCO NON-USER G8417 BMI >=30 CALCUATE W/FOLLOWUP DISPOSITION & COMMUNICATION FOLLOW UP 2 MONTHS ELECTRONICALLY SIGNED BY SHAKIRA MCNAIR ON 03/20/2017 AT 05:09 PM EDT DISCLAIMER : THIS IS A VISIT SUMMARY EXTRACTED FROM THE [facility] CHART. IT IS NOT A COPY OF THE [facility] PROGRESS NOTE. MTDD
== END ==
LOC: M PAIN 14:00
PROVIDERS: ATTEND Nurse Practitioner Family
DX: M96.1 Postlaminectomy syndrome, not elsewhere classified (principal); Z91.040 Latex allergy status; Z79.891 Long term (current) use of opiate analgesic; Z79.899 Other long term (current) drug therapy; Z87.820 Personal history of traumatic brain injury

== ENCOUNTER → 2017-05-19 | Outpatient (CLI) | payer MEDICARE, MEDICAID ==
--- NOTE | 2017-06-09 01:40 | ECWPNPC ---
PATIENT NAME: APRIL PARMAR : 1965 GENDER: FEMALE VISIT DATE: 05/19/2017 DISCHARGE DATE: 05/19/17 1238 VISIT LOCKED DATE TIME: PHYSICIAN: JOHNATHON JOHN RESOURCE: JOHNATHON JOHN REASON FOR APPOINTMENT 1. BACK HISTORY OF PRESENT ILLNESS HISTORY OF PRESENT ILLNESS: HERE FOR F/U OF CHRONIC NECK AND LOW BACK PAIN W HISTORY OF POST CERVICAL AND LUMBAR LAMINECTOMY PAIN SYNDROME.STARTED ON TRAZEDONE 50MG 1/2 TAB. AT HS WHICH IS IMPROVING SLEEP AND GENERALIZED WELL BEING.RATING PAIN VAS 7/10. PAIN THE PATIENT DESCRIBES THE PAIN... FALL RISK SCREENING: SCREENING :NO FALLS IN THE PAST YEAR CURRENT MEDICATIONS TAKING PREMARIN 0.625 MG TABLET 1 TABLET ORALLY ONCE DAILY TAKING SYNTHROID 150 MCG TABLET 1 TABLET ORALLY ONCE A DAY TAKING LIPITOR _ TABLET 1 TABLET ORALLY ONCE A DAY TAKING TIZANIDINE HCL 4 MG TABLET 1 TABLET NEEDED ORALLY THREE TIMES A DAY TAKING OXYCONTIN 15 MG TABLET ER 12 HOUR ABUSE-DETERRENT 1 TABLET ORALLY EVERY 8 HRS CHRONIC PAIN MDD=3 TAKING OXYCODONE HCL 15 MG TABLET 1 TABLET NEEDED ORALLY Q4-6H PRN PAIN MDD5 TAKING TRAZODONE HCL 50 MG TABLET 1 TABLET AT BEDTIME NEEDED ORALLY ONCE A DAY NOT-TAKING OXYCONTIN 15 MG TABLET EXTENDED RELEASE 12 HOUR 1 TABLET ORALLY TID MDD3 NOT-TAKING OXYCODONE HCL ER 15 MG TABLET ER 12 HOUR ABUSE-DETERRENT 1 TABLET ORALLY Q8H TID MDD3 NOT-TAKING ACCUTANE 30 MGS 1 TAB ORAL BID NOT-TAKING GABAPENTIN 100 MG CAPSULE DIRECTED ORALLY Q8H NOT-TAKING OXYCODONE HCL ER 15 MG TABLET ER 12 HOUR ABUSE-DETERRENT 1 TABLET ORALLY Q8H MDD3 NOT-TAKING OXYCODONE HCL ER 15 MG TABLET ER 12 HOUR ABUSE-DETERRENT 1 TABLET ORALLY Q8H TID MDD3 NOT-TAKING OXYCODONE HCL ER 15 MG TABLET ER 12 HOUR ABUSE-DETERRENT 1 TABLET ORALLY Q8H TID MDD3 NOT-TAKING OXYCODONE HCL ER 15 MG TABLET ER 12 HOUR ABUSE-DETERRENT 1 TABLET ORALLY Q8H MDD3 NOT-TAKING OXYCODONE HCL ER 15 MG TABLET ER 12 HOUR ABUSE-DETERRENT 1 TABLET ORALLY Q8H TID MDD3 NOT-TAKING NUCYNTA ER 150 MG TABLET EXTENDED RELEASE 12 HOUR 1 TABLET ORALLY EVERY 12 HRS MDD2 NOT-TAKING TRAMADOL HCL ER 50 MG TABLET 1 TABLET ORALLY [id number] MEDICATION LIST REVIEWED AND RECONCILED WITH THE PATIENT PAST MEDICAL HISTORY HEAD INJURY WITH SOME APHASIA DDD DJD ALLERGIES LATEX (FOR ALLERGY USE ONLY): HIVES,TERRIBLE SORES: ALLERGY SURGICAL HISTORY NECK FUSION 11/07/15 RIGHT KNEE ARTHROSCOPY RIGHT WRIST CARPAL TUNNEL RIGHT SHOULDER CARTILAGE CHOLECYSTECTOMY HYSTERECTOMY 4 C SECTIONS ABD INCISION REPAIR BACK SURGERY X3 DCS PLACED/REMOVED SOCIAL HISTORY GENERAL: TOBACCO USE ARE YOU A:NONSMOKER CAFFEINE CAFFEINE USE?YES HOW OFTEN AND HOW MUCH? MINIMAL UATSDIN [id number] NONE LANGUAGE LANGUAGES SPOKEN:[place]EL[place]AN LEARNING BARRIERS / SPECIAL NEEDS BARRIERS TO LEARNING?NO HEARING IMPAIRED?NO VISION IMPAIRED?YES :CORRECTIVE LENSES COGNITIVELY IMPAIRED?NO READINESS TO LEARN?YES LEARNING PREFERENCES?NO LEARNING CAPABILITIES PRESENT?YES EMOTIONAL BARRIERS?NO SPECIAL DEVICES?NO LIBRARY SUPERVISOR NEEDED?NO PAIN CLINIC PFS, CLERGY, PUBLIC HEALTH REFERRALS PFS REFERRAL NEEDED?NO CLERGY REFERRAL NEEDED?NO PUBLIC HEALTH REFERRAL NEEDED?NO WAS THE PROVIDER NOTIFIED OF ANY PERTINENT INFO?YES HAS THE PATIENT BEEN EDUCATED REGARDING HIS/HER PLAN OF CARE?YES HAS THE PATIENT BEEN EDUCATED REGARDING PAIN, THE RISK FOR PAIN, THE IMPORTANCE OF EFFECTIVE PAIN MANAGEMENT, AND THE PAIN ASSESSMENT PROCESS?YES REVIEWED BY: JESUS. ADVANCE DIRECTIVES HEALTH CARE PROXY?NO WOULD YOU LIKE MORE INFORMATION?NO DO YOU HAVE A DNR?NO WOULD YOU LIKE MORE INFORMATION?NO LIVING WILL?NO WOULD YOU LIKE MORE INFORMATION?NO POWER OF LABOR DELIVERY RN?NO WOULD YOU LIKE MORE INFORMATION?NO REVIEW OF SYSTEMS REVIEWED BY: PROVIDER: JOHNATHON ROSENBERG . CONSTITUTIONAL: ANY CHANGE IN YOUR MEDICAL CONDITION? NO . CHILLS NO . FEVER NO . INFECTION: DO YOU HAVE NEW INFECTIONS? NO . DO YOU HAVE HISTORY OF MRSA? NO . MUSCULOSKELETAL: ANY NEW PATTERNS OF PAIN OR NUMBNESS? NO . GASTROENTEROLOGY: ANY NEW CHANGE IN BOWEL CONTROL? NO . GENITOURINARY: ANY NEW CHANGE IN BLADDER CONTROL? NO . IS THERE A CHANCE YOU COULD BE ? NO . HEMATOLOGY/LYMPH: DO YOU TAKE ANY BLOOD THINNERS? (FOR EXAMPLE- COUMADIN, PLAVIX, AGGRENOX, PLATEL, PRADAXA, OR XARELTO) NO . WHEN WAS YOUR LAST DOSE? DATE: TIME: . NEUROLOGY: HAVE YOU FALLEN IN THE PAST 6 MONTHS? YES, PT STATES SHE FELL ABOUT A WEEK AGO FROM LOSS OF BALANCE. PT DENIES SEEKING MEDICAL [place] . ANY NEW EXTREMITY NUMBNESS OR WEAKNESS? NO . CARDIOLOGY: DO YOU HAVE A PACEMAKER OR DEFIBRILLATOR? NO . RESPIRATORY: HAVE YOU BEEN SICK IN THE PAST WEEK? NO . FEVER NO . FLU LIKE SYMPTOMS? NO . COUGH NO . INTEGUMENTARY: DO YOU HAVE ANY RASHES OR OPEN SORES? NO . ALLERGIC/IMMUNO: ARE YOU ALLERGIC TO SHELLFISH OR IV DYE? NO . ANY NEW ALLERGIES? NO . PSYCHIATRIC: DO YOU HAVE THOUGHTS OF HURTING YOURSELF OR SOMEONE ELSE? NO . ARE YOU ABUSED, NEGLECTED, OR IN AN UNSAFE ENVIRONMENT? NO . ENDOCRINOLOGY: ARE YOU DIABETIC? NO . OTHER: DO YOU NEED ANY PRESCRIPTIONS? YES, OXYCONTIN, OXYCODONE . IF YES, PLEASE LIST: ____ . ANY NEW PROBLEMS WITH YOUR MEDICATIONS? NO . WHEN DID YOU LAST EAT? ____ . WHEN DID YOU LAST DRINK? ____ . WHAT DID YOU LAST DRINK? ____ . NAME OF PERSON DRIVING YOU HOME? ____ . DO YOU HAVE ANY OTHER QUESTIONS OR CONCERNS NO . VITAL SIGNS WT 170 LBS, HT 66 IN, BMI 27.44 INDEX, BP 149/77 MM HG, HR 54 /MIN, RR 16 /MIN, TEMP 98.4 F, OXYGEN SAT % 97%, NA INITIALS SC 12:02, REVIEWED BY: GATO. EXAMINATION GENERAL EXAMINATION: LUNGS:LUNG SOUNDS ARE CLEAR. HEART:HEART RATE REGULAR. MUSCULOSKELETAL:*. ASSESSMENTS POST LAMINECTOMY SYNDROME - M96.1 (PRIMARY) TREATMENT POST LAMINECTOMY SYNDROME CONTINUE TIZANIDINE HCL TABLET, 4 MG, 1 TABLET NEEDED, ORALLY, THREE TIMES A DAY, 30 DAY(S), 45, REFILLS 2 REFILL OXYCONTIN TABLET ER 12 HOUR ABUSE-DETERRENT, 15 MG, 1 TABLET, ORALLY, EVERY 8 HRS CHRONIC PAIN MDD=3, 30 DAY(S), 90, REFILLS 0 REFILL OXYCODONE HCL TABLET, 15 MG, 1 TABLET NEEDED, ORALLY, Q4-6H PRN PAIN MDD5, 30 DAY(S), 150, REFILLS 0 CONTINUE TRAZODONE HCL TABLET, 50 MG, 1 TABLET AT BEDTIME NEEDED, ORALLY, ONCE A DAY NOTES: ISTOP REGISTRY REVIEWED [id number] DEMNOSTRATES COMPLLIANCE. BRINGS IN MEDICATIONS WHICH IS APPROPRIATE FOR WHAT WAS DISPENSED. RECENT URINE TOXICOLOGY REVIEWED. NO UNAUTHORIZED MEDICATIONS. NO ILLICIT SUBSTANCES AND PRESCRIBED MEDICATIONS WERE PRESENT. , RISKS AND BENEFITS OF NARCOTIC/OPIOD MEDICATIONS WERE REVIEWED WITH PATIENT - THIS INCLUDES BUT IS NOT LIMITED TO RISK OF DEPENDANCE/DEVELOPMENT OF ADDICTION, MOOD DISTURBANCE AND DEPRESSION, OSTEOPOROSIS, HORMONAL AND LABIDAL CHANGES, RESPIRATORY DEPRESSION AND . PATIENT IS ADVISED NOT TO DRIVE WHILE ON THESE MEDICATIONS. PROCEDURE CODES FA211 ESTABILISHED PATIENT [facility] FACILITY CHARGE G8730 PAIN ASSESS POS TOOL F/U PLAN DOC G8427 DOC MEDS VERIFIED W/PT OR RE DISPOSITION & COMMUNICATION FOLLOW UP 2 MONTHS ELECTRONICALLY SIGNED BY SHAKIRA MCNAIR ON 06/08/2017 AT 03:45 PM EST DISCLAIMER : THIS IS A VISIT SUMMARY EXTRACTED FROM THE [employer] CHART. IT IS NOT A COPY OF THE [employer] PROGRESS NOTE. IVY
== END ==
LOC: M PAIN 11:30
PROVIDERS: ATTEND Nurse Practitioner Family
DX: M96.1 Postlaminectomy syndrome, not elsewhere classified (principal); Z79.891 Long term (current) use of opiate analgesic; Z79.899 Other long term (current) drug therapy; Z91.040 Latex allergy status

== ENCOUNTER → 2017-08-29 | Outpatient (CLI) | payer MEDICARE, MEDICAID | LOC: M PAIN 15:00 | DX: M96.1 Postlaminectomy syndrome, not elsewhere classified (principal); E07.9 Disorder of thyroid, unspecified; E78.5 Hyperlipidemia, unspecified; Z79.891 Long term (current) use of opiate analgesic; Z79.899 Other long term (current) drug therapy; Z91.040 Latex allergy status | CPT/HCPCS: G0463 ==

== ENCOUNTER → 2017-12-25 | Outpatient (CLI) | payer MEDICARE, MEDICAID | LOC: M PAIN 11:15 | DX: M96.1 Postlaminectomy syndrome, not elsewhere classified (principal); Z79.891 Long term (current) use of opiate analgesic; Z79.899 Other long term (current) drug therapy; Z91.040 Latex allergy status; Z87.820 Personal history of traumatic brain injury; Z91.81 History of falling | CPT/HCPCS: G0463 ==

== ENCOUNTER → 2018-02-26 | Outpatient (CLI) | payer MEDICARE, MEDICAID | LOC: M PAIN 11:00 | DX: M96.1 Postlaminectomy syndrome, not elsewhere classified (principal); Z79.891 Long term (current) use of opiate analgesic; Z79.899 Other long term (current) drug therapy; Z91.040 Latex allergy status; Z87.820 Personal history of traumatic brain injury | CPT/HCPCS: G0463 ==

== ENCOUNTER → 2018-07-27 | Outpatient (CLI) | payer MEDICARE, MEDICAID ==
[~2018-07-27] MED LIST changes: +OXYC10TA3 PO; -OXYC1TAB16 PO
--- NOTE | 2018-08-13 00:19 | ECWPNPC ---
PATIENT NAME: APRIL PARMAR : 1965 GENDER: FEMALE VISIT DATE: 07/27/2018 DISCHARGE DATE: 07/27/18 1106 VISIT LOCKED DATE TIME: PHYSICIAN: JOHNATHON JOHN RESOURCE: JOHNATHON JOHN REASON FOR APPOINTMENT 1. BACK HISTORY OF PRESENT ILLNESS HISTORY OF PRESENT ILLNESS: HERE FOR F/U OF CHRONIC GENERALIZED BACK PAIN WITH HISTORY OF MULTIPLE LUMBAR AND CERVICAL SURGERIES.CHIEF AREA OF PAIN IS MID THORACIC SPINE.FOLLOWS WITH DR. SMALLS-ORTHOPEDIC SURGEON AND SHE IS CONTEMPLATING THORACIC SURGERY BUT WOULD LIKE TO HOLD OFF MUCH POSSIBL.MEDICATION IS SOMEWHAT HELPFUL.DISCUSSED INTERVENTIONAL TREATMENT OPTIONS.RATING PAIN VAS 6/10. PAIN THE PATIENT DESCRIBES THE PAIN... FALL RISK SCREENING: SCREENING :NO FALLS IN THE PAST YEAR CURRENT MEDICATIONS TAKING PREMARIN 0.625 MG TABLET 1 TABLET ORALLY ONCE DAILY TAKING SYNTHROID 150 MCG TABLET 1 TABLET ORALLY ONCE A DAY TAKING LIPITOR 10 MG TABLET 1 TABLET ORALLY ONCE A DAY TAKING CYCLOBENZAPRINE HCL 10 MG TABLET 1 TABLET NEEDED ORALLY Q6H PRN TAKING TRAMADOL HCL 50 MG TABLET 2 ORALLY Q6H PRN MDD4 TAKING TRAZODONE HCL 50 MG TABLET 1 TABLET AT BEDTIME NEEDED ORALLY ONCE A DAY TAKING OXYCONTIN 15 MG TABLET ER 12 HOUR ABUSE-DETERRENT 1 TABLET ORALLY EVERY 8 HRS CHRONIC PAIN MDD=3 TAKING OXYCODONE HCL 15 MG TABLET 1 TABLET NEEDED ORALLY Q4-6H PRN PAIN MDD5 UNKNOWN OXYCONTIN 15 MG TABLET EXTENDED RELEASE 12 HOUR 1 TABLET ORALLY TID MDD3 UNKNOWN OXYCODONE HCL ER 15 MG TABLET ER 12 HOUR ABUSE-DETERRENT 1 TABLET ORALLY Q8H TID MDD3 UNKNOWN ACCUTANE 30 MGS 1 TAB ORAL BID UNKNOWN GABAPENTIN 100 MG CAPSULE DIRECTED ORALLY Q8H UNKNOWN OXYCODONE HCL ER 15 MG TABLET ER 12 HOUR ABUSE-DETERRENT 1 TABLET ORALLY Q8H MDD3 UNKNOWN OXYCODONE HCL ER 15 MG TABLET ER 12 HOUR ABUSE-DETERRENT 1 TABLET ORALLY Q8H TID MDD3 UNKNOWN OXYCODONE HCL ER 15 MG TABLET ER 12 HOUR ABUSE-DETERRENT 1 TABLET ORALLY Q8H TID MDD3 UNKNOWN OXYCODONE HCL ER 15 MG TABLET ER 12 HOUR ABUSE-DETERRENT 1 TABLET ORALLY Q8H MDD3 UNKNOWN OXYCODONE HCL ER 15 MG TABLET ER 12 HOUR ABUSE-DETERRENT 1 TABLET ORALLY Q8H TID MDD3 UNKNOWN NUCYNTA ER 150 MG TABLET EXTENDED RELEASE 12 HOUR 1 TABLET ORALLY EVERY 12 HRS MDD2 UNKNOWN TRAMADOL HCL ER 50 MG TABLET 1 TABLET ORALLY [id number] MEDICATION LIST REVIEWED AND RECONCILED WITH THE PATIENT PAST MEDICAL HISTORY HEAD INJURY WITH SOME APHASIA DDD DJD ALLERGIES LATEX (FOR ALLERGY USE ONLY): HIVES,TERRIBLE SORES: ALLERGY SURGICAL HISTORY NECK FUSION 11/07/15 RIGHT KNEE ARTHROSCOPY RIGHT WRIST CARPAL TUNNEL RIGHT SHOULDER CARTILAGE CHOLECYSTECTOMY HYSTERECTOMY 4 C SECTIONS ABD INCISION REPAIR BACK SURGERY X5 DCS PLACED/REMOVED FAMILY HISTORY FATHER: 66 YRS, DIAGNOSED WITH CANCER MOTHER: ALIVE 76 YRS 1 BROTHER(S) , 1 SISTER(S) . 5 SON(S) , 3 DAUGHTER(S) - HEALTHY. ALCOHOLISM IN FAMILY, SON-CHIARI MALFORMATION. SOCIAL HISTORY GENERAL: TOBACCO USE ARE YOU A:NONSMOKER CAFFEINE CAFFEINE USE?YES HOW OFTEN AND HOW MUCH? MINIMAL GNOSTICISM [id number] NONE LANGUAGE LANGUAGES SPOKEN:SAMMARINESE LEARNING BARRIERS / SPECIAL NEEDS BARRIERS TO LEARNING?NO HEARING IMPAIRED?NO VISION IMPAIRED?YES :CORRECTIVE LENSES COGNITIVELY IMPAIRED?NO READINESS TO LEARN?YES LEARNING PREFERENCES?NO LEARNING CAPABILITIES PRESENT?YES EMOTIONAL BARRIERS?NO SPECIAL DEVICES?NO DRY CELL TESTER NEEDED?NO PAIN CLINIC PFS, CLERGY, PUBLIC HEALTH REFERRALS PFS REFERRAL NEEDED?NO CLERGY REFERRAL NEEDED?NO PUBLIC HEALTH REFERRAL NEEDED?NO WAS THE PROVIDER NOTIFIED OF ANY PERTINENT INFO?YES HAS THE PATIENT BEEN EDUCATED REGARDING HIS/HER PLAN OF CARE?YES HAS THE PATIENT BEEN EDUCATED REGARDING PAIN, THE RISK FOR PAIN, THE IMPORTANCE OF EFFECTIVE PAIN MANAGEMENT, AND THE PAIN ASSESSMENT PROCESS?YES ADVANCE DIRECTIVE HEALTH CARE PROXY? NO, WOULD YOU LIKE MORE INFORMATION? NO, DO YOU HAVE A DNR? NO, WOULD YOU LIKE MORE INFORMATION? NO, LIVING WILL? NO, WOULD YOU LIKE MORE INFORMATION? NO, POWER OF LOG MARKER? NO, WOULD YOU LIKE MORE INFORMATION? NO. HOSPITALIZATION/MAJOR DIAGNOSTIC PROCEDURE NO HOSPITALIZATION HISTORY. REVIEW OF SYSTEMS REVIEWED BY: PROVIDER: JOHNATHON ROSENBERG . CONSTITUTIONAL: ANY CHANGE IN YOUR MEDICAL CONDITION? NO . CHILLS NO . FEVER NO . INFECTION: DO YOU HAVE NEW INFECTIONS? NO . DO YOU HAVE HISTORY OF MRSA? NO . MUSCULOSKELETAL: ANY NEW PATTERNS OF PAIN OR NUMBNESS? NO . GASTROENTEROLOGY: ANY NEW CHANGE IN BOWEL CONTROL? NO . GENITOURINARY: ANY NEW CHANGE IN BLADDER CONTROL? NO . IS THERE A CHANCE YOU COULD BE ? NO . HEMATOLOGY/LYMPH: DO YOU TAKE ANY BLOOD THINNERS? (FOR EXAMPLE- COUMADIN, PLAVIX, AGGRENOX, PLATEL, PRADAXA, OR XARELTO) NO . WHEN WAS YOUR LAST DOSE? DATE: TIME: . NEUROLOGY: HAVE YOU FALLEN IN THE PAST 12 MONTHS? YES PT STATES SHE FALLS "ALL THE TIME" . ANY NEW EXTREMITY NUMBNESS OR WEAKNESS? NO . CARDIOLOGY: DO YOU HAVE A PACEMAKER OR DEFIBRILLATOR? NO . RESPIRATORY: HAVE YOU BEEN SICK IN THE PAST WEEK? NO . FEVER NO . FLU LIKE SYMPTOMS? NO . COUGH NO . INTEGUMENTARY: DO YOU HAVE ANY RASHES OR OPEN SORES? NO . ALLERGIC/IMMUNO: ARE YOU ALLERGIC TO IV DYE? NO . ANY NEW ALLERGIES? NO . PSYCHIATRIC: DO YOU HAVE THOUGHTS OF HURTING YOURSELF OR SOMEONE ELSE? NO . ARE YOU ABUSED, NEGLECTED, OR IN AN UNSAFE ENVIRONMENT? NO . ENDOCRINOLOGY: ARE YOU DIABETIC? NO . OTHER: DO YOU NEED ANY PRESCRIPTIONS? NO . IF YES, PLEASE LIST: ____ . ANY NEW PROBLEMS WITH YOUR MEDICATIONS? NO . WHEN DID YOU LAST EAT? ____ . WHEN DID YOU LAST DRINK? ____ . WHAT DID YOU LAST DRINK? ____ . NAME OF PERSON DRIVING YOU HOME? ____ . DO YOU HAVE ANY OTHER QUESTIONS OR CONCERNS PT STATES SHE WOULD LIKE TO BE PRESCRIBED A LTHORACIC BACK BRACE . VITAL SIGNS WT 195.8 LBS, HT 66 IN, BMI 31.60 INDEX, BP 141/67 MM HG, HR 66 /MIN, RR 16 /MIN, TEMP 97.1 F, OXYGEN SAT % 97%, NA INITIALS SC 10:19, REVIEWED BY: KG. EXAMINATION GENERAL EXAMINATION: GENERAL APPEARANCE:AWAKE,ALERT ,PLEAASANT . PSYCHAFFECT NORMAL . LUNGS:LUNG AMBROCIO ARE CLEAR TO AUSCULTATION BILATERALLY. GOOD MOVEMENT OF AIR . HEART:S1, S2 IN A REGULAR RATE AND RHYTHM. NO SIGNIFICANT MURMURS, RUBS OR GALLOPS NOTED . THORACIC SPINETRIGGER POINTS WITH RESTRICTION OF MOVEMENT NOTED OVER MID THORACIC PARASPINAL REGION BILAT.. ASSESSMENTS MYALGIA, OTHER SITE - M79.18 (PRIMARY) TREATMENT MYALGIA, OTHER SITE REFILL CYCLOBENZAPRINE HCL TABLET, 10 MG, 1 TABLET NEEDED, ORALLY, Q6H PRN, 30 DAY(S), 120, REFILLS 2 REFILL TRAMADOL HCL TABLET, 50 MG, 2, ORALLY, Q6H PRN MDD4, 30 DAY(S), 120, REFILLS 2 REFILL TRAZODONE HCL TABLET, 50 MG, 1 TABLET AT BEDTIME NEEDED, ORALLY, ONCE A DAY, 30 DAY(S), 30 TABLET, REFILLS 2 REFILL OXYCONTIN TABLET ER 12 HOUR ABUSE-DETERRENT, 15 MG, 1 TABLET, ORALLY, EVERY 8 HRS CHRONIC PAIN MDD=3, 30 DAY(S), 90, REFILLS 0 REFILL OXYCODONE HCL TABLET, 15 MG, 1 TABLET NEEDED, ORALLY, Q4-6H PRN PAIN MDD5, 30 DAY(S), 150, REFILLS 0 NOTES: TPI THORACIC, ISTOP REGISTRY REVIEWED AND DEMONSTRATES COMPLLIANCE. BRINGS IN MEDICATIONS WHICH IS APPROPRIATE FOR WHAT WAS DISPENSED. RECENT URINE TOXICOLOGY REVIEWED. NO UNAUTHORIZED MEDICATIONS. NO ILLICIT SUBSTANCES AND PRESCRIBED MEDICATIONS WERE PRESENT. , RISKS AND BENEFITS OF NARCOTIC/OPIOD MEDICATIONS WERE REVIEWED WITH PATIENT - THIS INCLUDES BUT IS NOT LIMITED TO RISK OF DEPENDANCE/DEVELOPMENT OF ADDICTION, MOOD DISTURBANCE AND DEPRESSION, OSTEOPOROSIS, HORMONAL AND LABIDAL CHANGES, RESPIRATORY DEPRESSION AND . PATIENT IS ADVISED NOT TO DRIVE OR DRINK ALCOHOL WHILE ON THESE MEDICATIONS. PROCEDURE CODES [id number] ESTABILISHED PATIENT MERGED WITH [facility] CHARGE DISPOSITION & COMMUNICATION FOLLOW UP POST (REASON: TPI THORACIC) ELECTRONICALLY SIGNED BY SHAKIRA PANIAGUA ON 08/12/2018 AT 02:15 PM EST DISCLAIMER : THIS IS A VISIT SUMMARY EXTRACTED FROM THE [employer] CHART. IT IS NOT A COPY OF THE [employer] PROGRESS NOTE. ANK[employer]
== END ==
LOC: M PAIN 10:45
PROVIDERS: ATTEND Nurse Practitioner Family
DX: M79.18 Myalgia, other site (principal); R29.6 Repeated falls; Z87.820 Personal history of traumatic brain injury; Z91.040 Latex allergy status; Z79.891 Long term (current) use of opiate analgesic; Z79.899 Other long term (current) drug therapy

== ENCOUNTER → 2018-09-24 | Outpatient (CLI) | payer MEDICARE, MEDICAID ==
[~2018-09-24] MED LIST changes: -/AMIT25TA NG; -/FENT25PA TD; +AMIT1TAB11 NG; +FENT1DIS14 TD
--- NOTE | 2018-10-11 01:09 | ECWPNPC ---
PATIENT NAME: APRIL PARMAR : 1965 GENDER: FEMALE VISIT DATE: 09/24/2018 DISCHARGE DATE: 09/24/18 1407 VISIT LOCKED DATE TIME: PHYSICIAN: JOHNATHON JOHN RESOURCE: JOHNATHON JOHN REASON FOR APPOINTMENT 1. POST PROC HISTORY OF PRESENT ILLNESS HISTORY OF PRESENT ILLNESS: HERE FOR ROUTINE F/U AND MANAGEMENT OF CHRONIC LOW BACK/GENERALIZED BACK PAIN.HAVING SIGNIFICANT PELVIC PAIN/NUMBNESS ISSUES OVER THE PAST MONTH.HAS HAD TO GO TO ER ON A FEW OCCASIONS.REPORTING AN INCREASE IN RIGHT LEG WEAKNESS.DENIES ONSET OF URINARY OR BOWEL INCONTINENCE.RATING PAIN VAS 8/10. PAIN THE PATIENT DESCRIBES THE PAIN... FALL RISK SCREENING: SCREENING :NO FALLS REPORTED IN THE LAST YEAR CURRENT MEDICATIONS TAKING PREMARIN 0.625 MG TABLET 1 TABLET ORALLY ONCE DAILY TAKING SYNTHROID 150 MCG TABLET 1 TABLET ORALLY ONCE A DAY TAKING LIPITOR 10 MG TABLET 1 TABLET ORALLY ONCE A DAY TAKING CYCLOBENZAPRINE HCL 10 MG TABLET 1 TABLET NEEDED ORALLY Q6H PRN TAKING TRAMADOL HCL 50 MG TABLET 2 ORALLY Q6H PRN MDD4 TAKING TRAZODONE HCL 50 MG TABLET 1 TABLET AT BEDTIME NEEDED ORALLY ONCE A DAY TAKING OXYCONTIN 15 MG TABLET ER 12 HOUR ABUSE-DETERRENT 1 TABLET ORALLY EVERY 8 HRS CHRONIC PAIN MDD=3 TAKING OXYCODONE HCL 15 MG TABLET 1 TABLET NEEDED ORALLY Q4-6H PRN PAIN MDD5 NOT-TAKING OXYCONTIN 15 MG TABLET EXTENDED RELEASE 12 HOUR 1 TABLET ORALLY TID MDD3 NOT-TAKING OXYCODONE HCL ER 15 MG TABLET ER 12 HOUR ABUSE-DETERRENT 1 TABLET ORALLY Q8H TID MDD3 NOT-TAKING ACCUTANE 30 MGS 1 TAB ORAL BID NOT-TAKING GABAPENTIN 100 MG CAPSULE DIRECTED ORALLY Q8H NOT-TAKING OXYCODONE HCL ER 15 MG TABLET ER 12 HOUR ABUSE-DETERRENT 1 TABLET ORALLY Q8H MDD3 NOT-TAKING OXYCODONE HCL ER 15 MG TABLET ER 12 HOUR ABUSE-DETERRENT 1 TABLET ORALLY Q8H TID MDD3 NOT-TAKING OXYCODONE HCL ER 15 MG TABLET ER 12 HOUR ABUSE-DETERRENT 1 TABLET ORALLY Q8H TID MDD3 NOT-TAKING OXYCODONE HCL ER 15 MG TABLET ER 12 HOUR ABUSE-DETERRENT 1 TABLET ORALLY Q8H MDD3 NOT-TAKING OXYCODONE HCL ER 15 MG TABLET ER 12 HOUR ABUSE-DETERRENT 1 TABLET ORALLY Q8H TID MDD3 NOT-TAKING NUCYNTA ER 150 MG TABLET EXTENDED RELEASE 12 HOUR 1 TABLET ORALLY EVERY 12 HRS MDD2 NOT-TAKING TRAMADOL HCL ER 50 MG TABLET 1 TABLET ORALLY [id number] MEDICATION LIST REVIEWED AND RECONCILED WITH THE PATIENT PAST MEDICAL HISTORY HEAD INJURY WITH SOME APHASIA DDD DJD ALLERGIES LATEX (FOR ALLERGY USE ONLY): HIVES,TERRIBLE SORES - ALLERGY SURGICAL HISTORY NECK FUSION 11/07/15 RIGHT KNEE ARTHROSCOPY RIGHT WRIST CARPAL TUNNEL RIGHT SHOULDER CARTILAGE CHOLECYSTECTOMY HYSTERECTOMY 4 C SECTIONS ABD INCISION REPAIR BACK SURGERY X5 DCS PLACED/REMOVED FAMILY HISTORY FATHER: 66 YRS, DIAGNOSED WITH CANCER MOTHER: ALIVE 76 YRS 1 BROTHER(S) , 1 SISTER(S) . 5 SON(S) , 3 DAUGHTER(S) - HEALTHY. ALCOHOLISM IN FAMILY, SON-CHIARI MALFORMATION. SOCIAL HISTORY GENERAL: TOBACCO USE ARE YOU A:NONSMOKER CAFFEINE CAFFEINE USE?YES HOW OFTEN AND HOW MUCH? MINIMAL BUDDHISM [id number] NONE LANGUAGE LANGUAGES SPOKEN:CROATIAN LEARNING BARRIERS / SPECIAL NEEDS BARRIERS TO LEARNING?NO HEARING IMPAIRED?NO VISION IMPAIRED?YES :CORRECTIVE LENSES COGNITIVELY IMPAIRED?NO READINESS TO LEARN?YES LEARNING PREFERENCES?NO LEARNING CAPABILITIES PRESENT?YES EMOTIONAL BARRIERS?NO SPECIAL DEVICES?NO REDEVELOPMENT SPECIALIST NEEDED?NO PAIN CLINIC PFS, CLERGY, PUBLIC HEALTH REFERRALS PFS REFERRAL NEEDED?NO CLERGY REFERRAL NEEDED?NO PUBLIC HEALTH REFERRAL NEEDED?NO WAS THE PROVIDER NOTIFIED OF ANY PERTINENT INFO?YES HAS THE PATIENT BEEN EDUCATED REGARDING HIS/HER PLAN OF CARE?YES HAS THE PATIENT BEEN EDUCATED REGARDING PAIN, THE RISK FOR PAIN, THE IMPORTANCE OF EFFECTIVE PAIN MANAGEMENT, AND THE PAIN ASSESSMENT PROCESS?YES ADVANCE DIRECTIVE ADVANCE DIRECTIVE DISCUSSED WITH PATIENT:YES DECLINED HOSPITALIZATION/MAJOR DIAGNOSTIC PROCEDURE SURGERIES REVIEW OF SYSTEMS REVIEWED BY: PROVIDER: JOHNATHON ROSENBERG . CONSTITUTIONAL: ANY CHANGE IN YOUR MEDICAL CONDITION? YES, DIVERTICULITIS . CHILLS NO . FEVER NO . INFECTION: DO YOU HAVE NEW INFECTIONS? NO . DO YOU HAVE HISTORY OF MRSA? NO . MUSCULOSKELETAL: ANY NEW PATTERNS OF PAIN OR NUMBNESS? YES , LOW RIGHT BACK PAIN AND NUMBNESS IN CORE . GASTROENTEROLOGY: ANY NEW CHANGE IN BOWEL CONTROL? NO . GENITOURINARY: ANY NEW CHANGE IN BLADDER CONTROL? NO . IS THERE A CHANCE YOU COULD BE ? NO . HEMATOLOGY/LYMPH: DO YOU TAKE ANY BLOOD THINNERS? (FOR EXAMPLE- COUMADIN, PLAVIX, AGGRENOX, PLATEL, PRADAXA, OR XARELTO) NO . WHEN WAS YOUR LAST DOSE? DATE: TIME: . NEUROLOGY: HAVE YOU FALLEN IN THE PAST 12 MONTHS? YES, FELL 2 WEEKS AGO FROM LOSS OF BALANCE, PT DENIES MAJOR INJURIES . ANY NEW EXTREMITY NUMBNESS OR WEAKNESS? YES, RIGHT LEG NUMBNESS X 6 WEEKS . CARDIOLOGY: DO YOU HAVE A PACEMAKER OR DEFIBRILLATOR? NO . RESPIRATORY: HAVE YOU BEEN SICK IN THE PAST WEEK? NO . FEVER NO . FLU LIKE SYMPTOMS? NO . COUGH NO . INTEGUMENTARY: DO YOU HAVE ANY RASHES OR OPEN SORES? NO . ALLERGIC/IMMUNO: ARE YOU ALLERGIC TO IV DYE? NO . ANY NEW ALLERGIES? NO . PSYCHIATRIC: DO YOU HAVE THOUGHTS OF HURTING YOURSELF OR SOMEONE ELSE? NO . ARE YOU ABUSED, NEGLECTED, OR IN AN UNSAFE ENVIRONMENT? NO . ENDOCRINOLOGY: ARE YOU DIABETIC? NO . OTHER: DO YOU NEED ANY PRESCRIPTIONS? YES, TRAMADOL AND TRAZADONE . IF YES, PLEASE LIST: ____ . ANY NEW PROBLEMS WITH YOUR MEDICATIONS? NO . WHEN DID YOU LAST EAT? ____ . WHEN DID YOU LAST DRINK? ____ . WHAT DID YOU LAST DRINK? ____ . NAME OF PERSON DRIVING YOU HOME? ____ . DO YOU HAVE ANY OTHER QUESTIONS OR CONCERNS NO . VITAL SIGNS WT 190.2 LBS, HT 66 IN, BMI 30.70 INDEX, BP 121/57 MM HG, HR 62 /MIN, RR 16 /MIN, TEMP 97.2 F, OXYGEN SAT % 94%, NA INITIALS SC 13:25, REVIEWED BY: EM. EXAMINATION GENERAL EXAMINATION: GENERAL APPEARANCE:AWAKE,ALERT ,PLEAASANT . PSYCHAFFECT NORMAL . LUNGS:LUNG AMBROCIO ARE CLEAR TO AUSCULTATION BILATERALLY. GOOD MOVEMENT OF AIR . HEART:S1, S2 IN A REGULAR RATE AND RHYTHM. NO SIGNIFICANT MURMURS, RUBS OR GALLOPS NOTED . ASSESSMENTS POST LAMINECTOMY SYNDROME - M96.1 (PRIMARY) CHRONIC PRESCRIPTION OPIATE USE - Z79.891 TREATMENT POST LAMINECTOMY SYNDROME STOP TRAMADOL HCL TABLET, 50 MG, 2, ORALLY, Q6H PRN MDD4 CONTINUE CYCLOBENZAPRINE HCL TABLET, 10 MG, 1 TABLET NEEDED, ORALLY, Q6H PRN REFILL TRAZODONE HCL TABLET, 50 MG, 1 TO 2 TAB, ORALLY, BEFORE BEDTIME, 30 DAY(S), 60, REFILLS 2 REFILL OXYCONTIN TABLET ER 12 HOUR ABUSE-DETERRENT, 30 MG, 1 TABLET, ORALLY, BID MDD2, 30 DAY(S), 60, REFILLS 0 REFILL OXYCODONE HCL TABLET, 15 MG, 1 TABLET NEEDED, ORALLY, Q4-6H PRN PAIN MDD5, 30 DAY(S), 150, REFILLS 0 START MOVANTIK TABLET, 25 MG, 1 TABLET IN THE MORNING, ORALLY, ONCE A DAY, 30 DAY(S), 30, REFILLS 5 NOTES: ISTOP REGISTRY REVIEWED AND DEMONSTRATES COMPLLIANCE. (REF # [id number] ) BRINGS IN MEDICATIONS WHICH IS APPROPRIATE FOR WHAT WAS DISPENSED. RECENT URINE TOXICOLOGY REVIEWED. NO UNAUTHORIZED MEDICATIONS. NO ILLICIT SUBSTANCES AND PRESCRIBED MEDICATIONS WERE PRESENT. , RISKS AND BENEFITS OF NARCOTIC/OPIOD MEDICATIONS WERE REVIEWED WITH PATIENT - THIS INCLUDES BUT IS NOT LIMITED TO RISK OF DEPENDANCE/DEVELOPMENT OF ADDICTION, MOOD DISTURBANCE AND DEPRESSION, OSTEOPOROSIS, HORMONAL AND LABIDAL CHANGES, RESPIRATORY DEPRESSION AND . PATIENT IS ADVISED NOT TO DRIVE OR DRINK ALCOHOL WHILE ON THESE MEDICATIONS. PROCEDURE CODES FA211 ESTABILISHED PATIENT [facility] CHARGE DISPOSITION & COMMUNICATION FOLLOW UP 2 MONTHS ELECTRONICALLY SIGNED BY SHAKIRA PANIAGUA ON 10/08/2018 AT 05:40 PM EDT DISCLAIMER : THIS IS A VISIT SUMMARY EXTRACTED FROM THE [employer] CHART. IT IS NOT A COPY OF THE [employer] PROGRESS NOTE. IVY
== END ==
LOC: M PAIN 13:15
PROVIDERS: ATTEND Nurse Practitioner Family
DX: M96.1 Postlaminectomy syndrome, not elsewhere classified (principal); Z91.040 Latex allergy status; Z79.891 Long term (current) use of opiate analgesic; Z79.899 Other long term (current) drug therapy

== ENCOUNTER → 2019-02-05 | Outpatient (CLI) | payer MEDICARE, MEDICAID ==
--- NOTE | 2019-02-21 02:53 | ECWPNPC ---
PATIENT NAME: APRIL PARMAR : 1965 GENDER: FEMALE VISIT DATE: 02/05/2019 DISCHARGE DATE: 02/05/19 1150 VISIT LOCKED DATE TIME: PHYSICIAN: JOHNATHON JOHN RESOURCE: JOHNATHON JOHN REASON FOR APPOINTMENT 1. BACK HISTORY OF PRESENT ILLNESS HISTORY OF PRESENT ILLNESS: HERE FOR F/U OF CHRONIC GENERALIZED BACK PAIN WITH HISTORY OF MULTIPLE LUMBAR AND CERVICAL SURGERIES.CHIEF AREA OF PAIN IS MID THORACIC SPINE.FOLLOWS WITH DR. SMALLS-ORTHOPEDIC SURGEON AND SHE IS CONTEMPLATING THORACIC SURGERY BUT WOULD LIKE TO HOLD OFF MUCH POSSIBL.MEDICATION IS SOMEWHAT HELPFUL.DISCUSSED INTERVENTIONAL TREATMENT OPTIONS.RATING PAIN VAS 7/10. PAIN THE PATIENT DESCRIBES THE PAIN... THE PATIENT DESCRIBES THE PAIN... FALL RISK SCREENING: SCREENING :NO FALLS REPORTED IN THE LAST YEAR CURRENT MEDICATIONS TAKING PREMARIN 0.625 MG TABLET 1 TABLET ORALLY ONCE DAILY TAKING SYNTHROID 150 MCG TABLET 1 TABLET ORALLY ONCE A DAY TAKING LIPITOR 10 MG TABLET 1 TABLET ORALLY ONCE A DAY TAKING MOVANTIK 25 MG TABLET 1 TABLET IN THE MORNING ORALLY ONCE A DAY TAKING TRAMADOL HCL 50 MG TABLET 1 TABLET NEEDED ORALLY Q6H PRN MDD4 TAKING CYCLOBENZAPRINE HCL 10 MG TABLET 1 TABLET NEEDED ORALLY Q6H PRN TAKING OXYCODONE HCL 15 MG TABLET 1 TABLET NEEDED ORALLY Q4-6H PRN PAIN MDD5 TAKING OXYCONTIN 15 MG TABLET ER 12 HOUR ABUSE-DETERRENT 1 TABLET ORALLY Q8H TID MDD3 TAKING TRAZODONE HCL 50 MG TABLET 1 TO 2 TAB ORALLY BEFORE BEDTIME NOT-TAKING OXYCONTIN 15 MG TABLET EXTENDED RELEASE 12 HOUR 1 TABLET ORALLY TID MDD3 NOT-TAKING OXYCODONE HCL ER 15 MG TABLET ER 12 HOUR ABUSE-DETERRENT 1 TABLET ORALLY Q8H TID MDD3 NOT-TAKING ACCUTANE 30 MGS 1 TAB ORAL BID NOT-TAKING GABAPENTIN 100 MG CAPSULE DIRECTED ORALLY Q8H NOT-TAKING OXYCODONE HCL ER 15 MG TABLET ER 12 HOUR ABUSE-DETERRENT 1 TABLET ORALLY Q8H MDD3 NOT-TAKING OXYCODONE HCL ER 15 MG TABLET ER 12 HOUR ABUSE-DETERRENT 1 TABLET ORALLY Q8H TID MDD3 NOT-TAKING OXYCODONE HCL ER 15 MG TABLET ER 12 HOUR ABUSE-DETERRENT 1 TABLET ORALLY Q8H TID MDD3 NOT-TAKING OXYCODONE HCL ER 15 MG TABLET ER 12 HOUR ABUSE-DETERRENT 1 TABLET ORALLY Q8H MDD3 NOT-TAKING OXYCODONE HCL ER 15 MG TABLET ER 12 HOUR ABUSE-DETERRENT 1 TABLET ORALLY Q8H TID MDD3 NOT-TAKING NUCYNTA ER 150 MG TABLET EXTENDED RELEASE 12 HOUR 1 TABLET ORALLY EVERY 12 HRS MDD2 NOT-TAKING TRAMADOL HCL ER 50 MG TABLET 1 TABLET ORALLY [id number] MEDICATION LIST REVIEWED AND RECONCILED WITH THE PATIENT PAST MEDICAL HISTORY HEAD INJURY WITH SOME APHASIA DDD DJD FIBROMYALGIA INTERSTITIAL CYSTITIS ALLERGIES LATEX (FOR ALLERGY USE ONLY): HIVES,TERRIBLE SORES - ALLERGY SURGICAL HISTORY NECK FUSION 11/07/15 RIGHT KNEE ARTHROSCOPY RIGHT WRIST CARPAL TUNNEL RIGHT SHOULDER CARTILAGE CHOLECYSTECTOMY HYSTERECTOMY 4 C SECTIONS ABD INCISION REPAIR BACK SURGERY X5 DCS PLACED/REMOVED FAMILY HISTORY FATHER: 66 YRS, DIAGNOSED WITH CANCER MOTHER: ALIVE 76 YRS SIBLINGS: ALIVE, SISTER BRAIN CANCER 1 BROTHER(S) , 1 SISTER(S) . 5 SON(S) , 3 DAUGHTER(S) - HEALTHY. ALCOHOLISM IN FAMILY, SON-CHIARI MALFORMATION. SOCIAL HISTORY GENERAL: TOBACCO USE ARE YOU A:NONSMOKER PAIN CLINIC PFS, CLERGY, PUBLIC HEALTH REFERRALS PFS REFERRAL NEEDED?NO CLERGY REFERRAL NEEDED?NO PUBLIC HEALTH REFERRAL NEEDED?NO WAS THE PROVIDER NOTIFIED OF ANY PERTINENT INFO?YES HAS THE PATIENT BEEN EDUCATED REGARDING HIS/HER PLAN OF CARE?YES HAS THE PATIENT BEEN EDUCATED REGARDING PAIN, THE RISK FOR PAIN, THE IMPORTANCE OF EFFECTIVE PAIN MANAGEMENT, AND THE PAIN ASSESSMENT PROCESS?YES LATEX QUESTIONNAIRE LATEX ALLERGY : HAVE YOU EVER DEVELOPED ANY TYPE OF REACTION AFTER HANDLING LATEX PRODUCTS SUCH RUBBER GLOVES, CONDOMS, DIAPHRAGMS, BALLOONS, SOCKS, OR UNDERWEAR?YES SKIN BLISTERS - PLEASE INDICATE :RUBBER GLOVES LATEX ALLERGY : HAVE YOU EVER DEVELOPED ANY TYPE OF REACTION DURING OR AFTER DENTAL APPOINTMENT, VAGINAL/RECTAL EXAMINATION, SURGICAL PROCEDURE, OR ANY OTHER EXPOSURE?YES - PLEASE INDICATE :SURGICAL PROCEDURE LATEX RISK : HAVE YOU EVER HAD ANY DIFFICULTY BREATHING OR HIVES AFTER EATING OR HANDLING ANY FRUITS, OR VEGETABLES; SUCH KIWI, BANANAS, STONE FRUITS, OR CHESTNUTSNO LATEX RISK : DO YOU HAVE A PREVIOUS PERSONAL HISTORY OF MORE THAN NINE SURGERIES, SPINA BIFIDA, OR REPEATED CATHERIZATIONS? YES LATEX RISK : ARE YOU FREQUENTLY EXPOSED TO LATEX PRODUCTS IN YOUR OCCUPATION?NO DATE ASKED : 02/05/2019 CAFFEINE CAFFEINE USE?YES HOW OFTEN AND HOW MUCH? MINIMAL ADVANCE DIRECTIVE ADVANCE DIRECTIVE DISCUSSED WITH PATIENT:YES DECLINED MOSQUE [id number] NONE LANGUAGE LANGUAGES SPOKEN:AZERI RECREATIONAL DRUG USE DRUG USE?NO LEARNING BARRIERS / SPECIAL NEEDS BARRIERS TO LEARNING?NO HEARING IMPAIRED?NO VISION IMPAIRED?YES :CORRECTIVE LENSES COGNITIVELY IMPAIRED?NO READINESS TO LEARN?YES LEARNING PREFERENCES?NO LEARNING CAPABILITIES PRESENT?YES EMOTIONAL BARRIERS?NO SPECIAL DEVICES?NO FACILITY MANAGER HISTOLOGY NEEDED?NO HOSPITALIZATION/MAJOR DIAGNOSTIC PROCEDURE SURGERIES REVIEW OF SYSTEMS REVIEWED BY: PROVIDER: JOHNATHON ROSENBERG . CONSTITUTIONAL: ANY CHANGE IN YOUR MEDICAL CONDITION? NO . CHILLS NO . FEVER YES - RELATED TO SPIDER BITE . INFECTION: DO YOU HAVE NEW INFECTIONS? YES - BIT BY BROWN SPIDER . DO YOU HAVE HISTORY OF MRSA? NO . MUSCULOSKELETAL: ANY NEW PATTERNS OF PAIN OR NUMBNESS? NO . GASTROENTEROLOGY: ANY NEW CHANGE IN BOWEL CONTROL? YES - INCONTINENCE AT TIMES FOR PAST YEAR . GENITOURINARY: ANY NEW CHANGE IN BLADDER CONTROL? YES - INCONTINENCE AT TIMES FOR PAST YEAR . IS THERE A CHANCE YOU COULD BE ? NO . HEMATOLOGY/LYMPH: DO YOU TAKE ANY BLOOD THINNERS? (FOR EXAMPLE- COUMADIN, PLAVIX, AGGRENOX, PLATEL, PRADAXA, OR XARELTO) NO . WHEN WAS YOUR LAST DOSE? DATE: TIME: . NEUROLOGY: HAVE YOU FALLEN IN THE PAST 12 MONTHS? YES . ANY NEW EXTREMITY NUMBNESS OR WEAKNESS? NO . CARDIOLOGY: DO YOU HAVE A PACEMAKER OR DEFIBRILLATOR? NO . RESPIRATORY: HAVE YOU BEEN SICK IN THE PAST WEEK? NO . FEVER NO . FLU LIKE SYMPTOMS? NO . COUGH NO . INTEGUMENTARY: DO YOU HAVE ANY RASHES OR OPEN SORES? NO . ALLERGIC/IMMUNO: ARE YOU ALLERGIC TO IV DYE? NO . ANY NEW ALLERGIES? NO . PSYCHIATRIC: DO YOU HAVE THOUGHTS OF HURTING YOURSELF OR SOMEONE ELSE? NO . ARE YOU ABUSED, NEGLECTED, OR IN AN UNSAFE ENVIRONMENT? NO . ENDOCRINOLOGY: ARE YOU DIABETIC? NO . OTHER: DO YOU NEED ANY PRESCRIPTIONS? YES . IF YES, PLEASE LIST: OXYCODONE, OXYCONTIN, TRAZODONE,TIZANIDINE, TRAMADOL . ANY NEW PROBLEMS WITH YOUR MEDICATIONS? NO . WHEN DID YOU LAST EAT? ____ . WHEN DID YOU LAST DRINK? ____ . WHAT DID YOU LAST DRINK? ____ . NAME OF PERSON DRIVING YOU HOME? ____ . DO YOU HAVE ANY OTHER QUESTIONS OR CONCERNS NO . VITAL SIGNS WT 182.2 LBS, HT 66 IN, BMI 29.40 INDEX, BP 130/67 MM HG, HR 58 /MIN, RR 16 /MIN, TEMP 97.3 F, OXYGEN SAT % 98%, NA INITIALS SC 10:55, REVIEWED BY: HEMALTAHA. EXAMINATION GENERAL EXAMINATION: GENERALAWAKE,ALERT ,PLEAASANT . PSYCHAFFECT NORMAL . LUNGS:LUNG AMBROCIO ARE CLEAR TO AUSCULTATION BILATERALLY. GOOD MOVEMENT OF AIR . HEART:S1, S2 IN A REGULAR RATE AND RHYTHM. NO SIGNIFICANT MURMURS, RUBS OR GALLOPS NOTED . ASSESSMENTS POST LAMINECTOMY SYNDROME - M96.1 (PRIMARY) TREATMENT POST LAMINECTOMY SYNDROME STOP MOVANTIK TABLET, 25 MG, 1 TABLET IN THE MORNING, ORALLY, ONCE A DAY REFILL TRAMADOL HCL TABLET, 50 MG, 1 TABLET NEEDED, ORALLY, Q6H PRN MDD4, 30 DAY(S), 120, REFILLS 2 STOP CYCLOBENZAPRINE HCL TABLET, 10 MG, 1 TABLET NEEDED, ORALLY, Q6H PRN REFILL OXYCODONE HCL TABLET, 15 MG, 1 TABLET NEEDED, ORALLY, Q4-6H PRN PAIN MDD5, 30 DAY(S), 150, REFILLS 0 REFILL OXYCONTIN TABLET ER 12 HOUR ABUSE-DETERRENT, 15 MG, 1 TABLET, ORALLY, Q8H TID MDD3, 30 DAY(S), 90, REFILLS 0 REFILL TRAZODONE HCL TABLET, 50 MG, 1 TO 2 TAB, ORALLY, BEFORE BEDTIME, 30 DAY(S), 60, REFILLS 2 START TIZANIDINE HCL TABLET, 4 MG, 1 TABLET NEEDED, ORALLY, THREE TIMES A DAY, 30 DAYS, 90 TABLET, REFILLS 2 NOTES: ISTOP REGISTRY REVIEWED AND DEMONSTRATES COMPLLIANCE. (REF # ) BRINGS IN MEDICATIONS WHICH IS APPROPRIATE FOR WHAT WAS DISPENSED. RECENT URINE TOXICOLOGY REVIEWED. NO UNAUTHORIZED MEDICATIONS. NO ILLICIT SUBSTANCES AND PRESCRIBED MEDICATIONS WERE PRESENT. URINE TOX TODAY, RISKS AND BENEFITS OF NARCOTIC/OPIOD MEDICATIONS WERE REVIEWED WITH PATIENT - THIS INCLUDES BUT IS NOT LIMITED TO RISK OF DEPENDANCE/DEVELOPMENT OF ADDICTION, MOOD DISTURBANCE AND DEPRESSION, OSTEOPOROSIS, HORMONAL AND LABIDAL CHANGES, RESPIRATORY DEPRESSION AND . PATIENT IS ADVISED NOT TO DRIVE OR DRINK ALCOHOL WHILE ON THESE MEDICATIONS. PROCEDURE CODES FA211 ESTABILISHED PATIENT [facility] FACILITY CHARGE DISPOSITION & COMMUNICATION FOLLOW UP 3 MONTHS (REASON: MED MGMNT) ELECTRONICALLY SIGNED BY SHAKIRA PANIAGUA ON 02/20/2019 AT 04:19 PM EDT DISCLAIMER : THIS IS A VISIT SUMMARY EXTRACTED FROM THE [employer] CHART. IT IS NOT A COPY OF THE [employer] PROGRESS NOTE. IVY
== END ==
LOC: M PAIN 11:00
PROVIDERS: ATTEND Nurse Practitioner Family
DX: M96.1 Postlaminectomy syndrome, not elsewhere classified (principal); M79.7 Fibromyalgia; Z91.040 Latex allergy status; Z79.891 Long term (current) use of opiate analgesic; Z79.899 Other long term (current) drug therapy

== ENCOUNTER → 2019-05-08 | Outpatient (CLI) | payer MEDICARE, MEDICAID ==
--- NOTE | 2019-05-29 05:19 | ECWPNPC ---
PATIENT NAME: APRIL PARMAR : 1965 GENDER: FEMALE VISIT DATE: 05/08/2019 DISCHARGE DATE: 05/08/19 1146 VISIT LOCKED DATE TIME: PHYSICIAN: JOHNATHON JOHN RESOURCE: JOHNATHON JOHN REASON FOR APPOINTMENT 1. BACK/MED MGMNT HISTORY OF PRESENT ILLNESS HISTORY OF PRESENT ILLNESS: HERE FOR F/U OF CHRONIC GENERALIZED BACK PAIN WITH HISTORY OF MULTIPLE LUMBAR AND CERVICAL SURGERIES.CHIEF AREA OF PAIN IS MID THORACIC SPINE.MEDICATION IS SOMEWHAT HELPFUL.DISCUSSED INTERVENTIONAL TREATMENT OPTIONS.RATING PAIN VAS 7/10. PAIN THE PATIENT DESCRIBES THE PAIN... FALL RISK SCREENING: SCREENING :NO FALLS REPORTED IN THE LAST YEAR CURRENT MEDICATIONS TAKING PREMARIN 0.625 MG TABLET 1 TABLET ORALLY ONCE DAILY TAKING SYNTHROID 150 MCG TABLET 1 TABLET ORALLY ONCE A DAY TAKING LIPITOR 10 MG TABLET 1 TABLET ORALLY ONCE A DAY TAKING TRAMADOL HCL 50 MG TABLET 1 TABLET NEEDED ORALLY Q6H PRN MDD4 TAKING TRAZODONE HCL 50 MG TABLET 1 TO 2 TAB ORALLY BEFORE BEDTIME TAKING TIZANIDINE HCL 4 MG TABLET 1 TABLET NEEDED ORALLY THREE TIMES A DAY TAKING OXYCONTIN 15 MG TABLET ER 12 HOUR ABUSE-DETERRENT 1 TABLET ORALLY Q8H TID MDD3 TAKING OXYCODONE HCL 15 MG TABLET 1 TABLET NEEDED ORALLY Q4-6H PRN PAIN MDD5 NOT-TAKING OXYCONTIN 15 MG TABLET EXTENDED RELEASE 12 HOUR 1 TABLET ORALLY TID MDD3 NOT-TAKING OXYCODONE HCL ER 15 MG TABLET ER 12 HOUR ABUSE-DETERRENT 1 TABLET ORALLY Q8H TID MDD3 NOT-TAKING ACCUTANE 30 MGS 1 TAB ORAL BID NOT-TAKING GABAPENTIN 100 MG CAPSULE DIRECTED ORALLY Q8H NOT-TAKING OXYCODONE HCL ER 15 MG TABLET ER 12 HOUR ABUSE-DETERRENT 1 TABLET ORALLY Q8H MDD3 NOT-TAKING OXYCODONE HCL ER 15 MG TABLET ER 12 HOUR ABUSE-DETERRENT 1 TABLET ORALLY Q8H TID MDD3 NOT-TAKING OXYCODONE HCL ER 15 MG TABLET ER 12 HOUR ABUSE-DETERRENT 1 TABLET ORALLY Q8H TID MDD3 NOT-TAKING OXYCODONE HCL ER 15 MG TABLET ER 12 HOUR ABUSE-DETERRENT 1 TABLET ORALLY Q8H MDD3 NOT-TAKING OXYCODONE HCL ER 15 MG TABLET ER 12 HOUR ABUSE-DETERRENT 1 TABLET ORALLY Q8H TID MDD3 NOT-TAKING NUCYNTA ER 150 MG TABLET EXTENDED RELEASE 12 HOUR 1 TABLET ORALLY EVERY 12 HRS MDD2 NOT-TAKING TRAMADOL HCL ER 50 MG TABLET 1 TABLET ORALLY [id number] MEDICATION LIST REVIEWED AND RECONCILED WITH THE PATIENT PAST MEDICAL HISTORY HEAD INJURY WITH SOME APHASIA DDD DJD FIBROMYALGIA INTERSTITIAL CYSTITIS ALLERGIES LATEX (FOR ALLERGY USE ONLY): HIVES,TERRIBLE SORES - ALLERGY SURGICAL HISTORY NECK FUSION 11/07/15 RIGHT KNEE ARTHROSCOPY RIGHT WRIST CARPAL TUNNEL RIGHT SHOULDER CARTILAGE CHOLECYSTECTOMY HYSTERECTOMY 4 C SECTIONS ABD INCISION REPAIR BACK SURGERY X5 DCS PLACED/REMOVED FAMILY HISTORY FATHER: 66 YRS, DIAGNOSED WITH OTHER MALIGNANT NEOPLASM OF UNSPECIFIED SITE MOTHER: ALIVE 76 YRS SIBLINGS: ALIVE, SISTER BRAIN CANCER 1 BROTHER(S) , 1 SISTER(S) . 5 SON(S) , 3 DAUGHTER(S) - HEALTHY. ALCOHOLISM IN FAMILY, SON-CHIARI MALFORMATION. SOCIAL HISTORY GENERAL: TOBACCO USE ARE YOU A:[facility]MOKER PAIN CLINIC PFS, CLERGY, PUBLIC HEALTH REFERRALS PFS REFERRAL NEEDED?NO CLERGY REFERRAL NEEDED?NO PUBLIC HEALTH REFERRAL NEEDED?NO WAS THE PROVIDER NOTIFIED OF ANY PERTINENT INFO?YES HAS THE PATIENT BEEN EDUCATED REGARDING HIS/HER PLAN OF CARE?YES HAS THE PATIENT BEEN EDUCATED REGARDING PAIN, THE RISK FOR PAIN, THE IMPORTANCE OF EFFECTIVE PAIN MANAGEMENT, AND THE PAIN ASSESSMENT PROCESS?YES LATEX QUESTIONNAIRE LATEX ALLERGY : HAVE YOU EVER DEVELOPED ANY TYPE OF REACTION AFTER HANDLING LATEX PRODUCTS SUCH RUBBER GLOVES, CONDOMS, DIAPHRAGMS, BALLOONS, SOCKS, OR UNDERWEAR?YES SKIN BLISTERS - PLEASE INDICATE :RUBBER GLOVES LATEX ALLERGY : HAVE YOU EVER DEVELOPED ANY TYPE OF REACTION DURING OR AFTER DENTAL APPOINTMENT, VAGINAL/RECTAL EXAMINATION, SURGICAL PROCEDURE, OR ANY OTHER EXPOSURE?YES - PLEASE INDICATE :SURGICAL PROCEDURE LATEX RISK : HAVE YOU EVER HAD ANY DIFFICULTY BREATHING OR HIVES AFTER EATING OR HANDLING ANY FRUITS, OR VEGETABLES; SUCH KIWI, BANANAS, STONE FRUITS, OR CHESTNUTSNO LATEX RISK : DO YOU HAVE A PREVIOUS PERSONAL HISTORY OF MORE THAN NINE SURGERIES, SPINA BIFIDA, OR REPEATED CATHERIZATIONS? YES LATEX RISK : ARE YOU FREQUENTLY EXPOSED TO LATEX PRODUCTS IN YOUR OCCUPATION?NO DATE ASKED : 02/05/2019 CAFFEINE CAFFEINE USE?YES HOW OFTEN AND HOW MUCH? MINIMAL ADVANCE DIRECTIVE ADVANCE DIRECTIVE DISCUSSED WITH PATIENT:YES PATIENT DOES NOT HAVE ANY HCP AND DECLINED INFORMATION AT THIS TIME. MANDAEISM [id number] NONE LANGUAGE LANGUAGES SPOKEN:TURKISH RECREATIONAL DRUG USE DRUG USE?NO LEARNING BARRIERS / SPECIAL NEEDS BARRIERS TO LEARNING?NO HEARING IMPAIRED?NO VISION IMPAIRED?YES COGNITIVELY IMPAIRED?NO :CORRECTIVE LENSES READINESS TO LEARN?YES LEARNING PREFERENCES?NO LEARNING CAPABILITIES PRESENT?YES EMOTIONAL BARRIERS?NO SPECIAL DEVICES?NO FIELD SUPPORT ENGINEER NEEDED?NO REVIEWED WITH PATIENT 05/08/19 1135 JS. HOSPITALIZATION/MAJOR DIAGNOSTIC PROCEDURE SURGERIES REVIEW OF SYSTEMS REVIEWED BY: PROVIDER: JOHNATHON ROSENBERG . CONSTITUTIONAL: ANY CHANGE IN YOUR MEDICAL CONDITION? NO . CHILLS NO . FEVER NO . INFECTION: DO YOU HAVE NEW INFECTIONS? NO . DO YOU HAVE HISTORY OF MRSA? NO . MUSCULOSKELETAL: ANY NEW PATTERNS OF PAIN OR NUMBNESS? NO . GASTROENTEROLOGY: ANY NEW CHANGE IN BOWEL CONTROL? NO . GENITOURINARY: ANY NEW CHANGE IN BLADDER CONTROL? NO . IS THERE A CHANCE YOU COULD BE ? NO . HEMATOLOGY/LYMPH: DO YOU TAKE ANY BLOOD THINNERS? (FOR EXAMPLE- COUMADIN, PLAVIX, AGGRENOX, PLATEL, PRADAXA, OR XARELTO) NO . WHEN WAS YOUR LAST DOSE? DATE: TIME: . NEUROLOGY: HAVE YOU FALLEN IN THE PAST 12 MONTHS? YES, STATES FALL ABOUT A WEEK AND A HALF AGO FROM WEAKNESS IN LEGS. STATES NO MAJOR INJURIES, NO ED VISIT . ANY NEW EXTREMITY NUMBNESS OR WEAKNESS? NO . CARDIOLOGY: DO YOU HAVE A PACEMAKER OR DEFIBRILLATOR? NO . RESPIRATORY: HAVE YOU BEEN SICK IN THE PAST WEEK? NO . FEVER NO . FLU LIKE SYMPTOMS? NO . COUGH NO . INTEGUMENTARY: DO YOU HAVE ANY RASHES OR OPEN SORES? NO . ALLERGIC/IMMUNO: ARE YOU ALLERGIC TO IV DYE? NO . ANY NEW ALLERGIES? NO . PSYCHIATRIC: DO YOU HAVE THOUGHTS OF HURTING YOURSELF OR SOMEONE ELSE? NO . ARE YOU ABUSED, NEGLECTED, OR IN AN UNSAFE ENVIRONMENT? NO . ENDOCRINOLOGY: ARE YOU DIABETIC? NO . OTHER: DO YOU NEED ANY PRESCRIPTIONS? YES . IF YES, PLEASE LIST: ____TRAMADOL, OXYCODONE, OXYCONTIN, TIZANIDINE, TRAZADONE . ANY NEW PROBLEMS WITH YOUR MEDICATIONS? NO . WHEN DID YOU LAST EAT? ____ . WHEN DID YOU LAST DRINK? ____ . WHAT DID YOU LAST DRINK? ____ . NAME OF PERSON DRIVING YOU HOME? ____ . DO YOU HAVE ANY OTHER QUESTIONS OR CONCERNS FLU VACCINE APRIL 19 . VITAL SIGNS WT 180.2 LBS, HT 66 IN, BMI 29.08 INDEX, BP 132/63 MM HG, HR 58 /MIN, RR 16 /MIN, TEMP 97.6 F, OXYGEN SAT % 96%, SAFE IN ENV? (Y/N) YES, REVIEWED BY: SEAN. EXAMINATION GENERAL EXAMINATION: GENERALAWAKE,ALERT ,PLEAASANT . PSYCHAFFECT NORMAL . LUNGS:LUNG AMBROCIO ARE CLEAR TO AUSCULTATION BILATERALLY. GOOD MOVEMENT OF AIR . HEART:S1, S2 IN A REGULAR RATE AND RHYTHM. NO SIGNIFICANT MURMURS, RUBS OR GALLOPS NOTED . ASSESSMENTS POST LAMINECTOMY SYNDROME - M96.1 (PRIMARY) TREATMENT POST LAMINECTOMY SYNDROME REFILL TRAMADOL HCL TABLET, 50 MG, 1 TABLET NEEDED, ORALLY, Q6H PRN MDD4, 30 DAY(S), 120, REFILLS 2 REFILL TRAZODONE HCL TABLET, 50 MG, 1 TO 2 TAB, ORALLY, BEFORE BEDTIME, 30 DAY(S), 60, REFILLS 2 REFILL TIZANIDINE HCL TABLET, 4 MG, 1 TABLET NEEDED, ORALLY, THREE TIMES A DAY, 30 DAYS, 90 TABLET, REFILLS 2 REFILL OXYCONTIN TABLET ER 12 HOUR ABUSE-DETERRENT, 15 MG, 1 TABLET, ORALLY, Q8H TID MDD3, 30 DAY(S), 90, REFILLS 0 REFILL OXYCODONE HCL TABLET, 15 MG, 1 TABLET NEEDED, ORALLY, Q4-6H PRN PAIN MDD5, 30 DAY(S), 150, REFILLS 0 NOTES: ISTOP REGISTRY REVIEWED AND DEMONSTRATES COMPLLIANCE. BRINGS IN MEDICATIONS WHICH IS APPROPRIATE FOR WHAT WAS DISPENSED. RECENT URINE TOXICOLOGY REVIEWED. NO UNAUTHORIZED MEDICATIONS. NO ILLICIT SUBSTANCES AND PRESCRIBED MEDICATIONS WERE PRESENT. PROCEDURE CODES FA211 ESTABILISHED PATIENT [facility] FACILITY CHARGE DISPOSITION & COMMUNICATION FOLLOW UP 3 MONTHS ELECTRONICALLY SIGNED BY SHAKIRA PANIAGUA ON 05/28/2019 AT 08:37 AM EST DISCLAIMER : THIS IS A VISIT SUMMARY EXTRACTED FROM THE [employer] CHART. IT IS NOT A COPY OF THE [employer] PROGRESS NOTE. IVY
== END ==
LOC: M PAIN 11:15
PROVIDERS: ATTEND Nurse Practitioner Family
DX: M96.1 Postlaminectomy syndrome, not elsewhere classified (principal); M79.7 Fibromyalgia; Z91.040 Latex allergy status; Z79.891 Long term (current) use of opiate analgesic; Z79.899 Other long term (current) drug therapy

== ENCOUNTER 2019-08-05 09:36 | Day surgery (SDC) | payer MEDICARE, MEDICAID ==
[~2019-08-05] VITALS: Ht 167.6 cm; Wt 80.0 kg
[~2019-08-05 09:36] MED LIST changes: +LIDOCAINE 2% INJ 100 MG/5 ML SDV (FOR ANES.) As Ordered ONE; +NS 1,000 ML IV ONE; +OXYC15TA66 PO; +OXYC15TA76 PO; +SYNT150T PO; +TIZA2CAP PO; +TRAZ-252 PO; +cholesterol med PO; +propofoL 200 MG/20 ML VIAL As Ordered ONE
[2019-08-05] MEDS ORDERED: fentaNYL 100 MCG/2 ML INJECTION (J3010) As Ordered ONE (10:17)
--- NOTE | 2019-08-05 11:14 | ROOR ---
Patient Name: Benita Barry Procedure Date: 08/05/2019 10:37 AM Date of : 1965 Age: 54 Room: [facility] Gender: Female Note Status: Finalized Procedure: Upper GI endoscopy Indications: Dysphagia Providers: Rafa Amaya MD Referring MD: Nisha Mckeon NP Requesting Provider: Medicines: Monitored Anesthesia Care Complications: No immediate complications. Procedure: Pre-Anesthesia Assessment: - Prior to the procedure, a History and Physical was performed, and patient medications and allergies were reviewed. The patient is competent. The risks and benefits of the procedure and the sedation options and risks were discussed with the patient. All questions were answered and informed consent was obtained. Patient identification and proposed procedure were verified by the physician, the nurse and the anesthesiologist in the procedure room. Mental Status Examination: alert and oriented. Airway Examination: normal oropharyngeal airway and neck mobility. Respiratory Examination: clear to auscultation. CV Examination: normal. Prophylactic Antibiotics: The patient does not require prophylactic antibiotics. Prior Anticoagulants: The patient has taken no previous anticoagulant or antiplatelet agents. ASA Grade Assessment: II - A patient with mild systemic disease. After reviewing the risks and benefits, the patient was deemed in satisfactory condition to undergo the procedure. The anesthesia plan was to use monitored anesthesia care (MAC). Immediately prior to administration of medications, the patient was re-assessed for adequacy to receive sedatives. The heart rate, respiratory rate, oxygen saturations, blood pressure, adequacy of pulmonary ventilation, and response to care were monitored throughout the procedure. The physical status of the patient was re-assessed after the procedure. The Endoscope was introduced through the mouth, and advanced to the second part of duodenum. The upper GI endoscopy was accomplished without difficulty. The patient tolerated the procedure well. Findings: No endoscopic abnormality was evident in the esophagus to explain the patient's complaint of dysphagia. Biopsies were obtained from the proximal and distal esophagus with cold forceps for histology of suspected eosinophilic esophagitis. Verification of patient identification for the specimen was done by the physician and nurse using the patient's name, date and medical record number. Estimated blood loss was minimal. The Z-line was regular and was found 40 cm from the incisors. Scattered moderate inflammation characterized by erosions, erythema, friability and granularity was found in the gastric body and in the gastric antrum. Biopsies were taken with a cold forceps for Helicobacter pylori testing. The duodenal bulb and second portion of the duodenum were normal. Impression: - No endoscopic esophageal abnormality to explain patient's dysphagia. Biopsied. - Z-line regular, 40 cm from the incisors. - Gastritis. Biopsied. - Normal duodenal bulb and second portion of the duodenum. Recommendation: - Patient has a contact number available for emergencies. The signs and symptoms of potential delayed complications were discussed with the patient. Return to normal activities tomorrow. Written discharge instructions were provided to the patient. - High fiber diet. - Continue present medications. - Await pathology results. - Telephone GI clinic for pathology results in 2 weeks. - Return to primary care physician. Rafa Amaya MD Rafa Amaya MD 08/05/2019 11:14:19 AM Electronically signed by Rafa Amaya MD Number of Addenda: 0 Note Initiated On: 08/05/2019 10:37 AM Estimated Blood Loss: Estimated blood loss was minimal.
--- NOTE | 2019-08-05 11:17 | ROOR ---
Patient Name: Benita Barry Procedure Date: 08/05/2019 10:37 AM Date of : 1965 Age: 54 Room: [facility] Gender: Female Note Status: Finalized Procedure: Colonoscopy Indications: Screening for colorectal malignant neoplasm Providers: Rafa Amaya MD Referring MD: Nisha Mckeon NP Requesting Provider: Medicines: Monitored Anesthesia Care Complications: No immediate complications. Procedure: Pre-Anesthesia Assessment: - Prior to the procedure, a History and Physical was performed, and patient medications and allergies were reviewed. The patient is competent. The risks and benefits of the procedure and the sedation options and risks were discussed with the patient. All questions were answered and informed consent was obtained. Patient identification and proposed procedure were verified by the physician, the nurse and the anesthesiologist in the procedure room. Mental Status Examination: alert and oriented. Airway Examination: normal oropharyngeal airway and neck mobility. Respiratory Examination: clear to auscultation. CV Examination: normal. Prophylactic Antibiotics: The patient does not require prophylactic antibiotics. Prior Anticoagulants: The patient has taken no previous anticoagulant or antiplatelet agents. ASA Grade Assessment: II - A patient with mild systemic disease. After reviewing the risks and benefits, the patient was deemed in satisfactory condition to undergo the procedure. The anesthesia plan was to use monitored anesthesia care (MAC). Immediately prior to administration of medications, the patient was re-assessed for adequacy to receive sedatives. The heart rate, respiratory rate, oxygen saturations, blood pressure, adequacy of pulmonary ventilation, and response to care were monitored throughout the procedure. The physical status of the patient was re-assessed after the procedure. The Colonoscope was introduced through the anus with the intention of advancing to the cecum. The scope was advanced to the sigmoid colon before the procedure was aborted. Medications were given. The colonoscopy was performed without difficulty. The patient tolerated the procedure well. The quality of the bowel preparation was poor and unsatisfactory. The terminal ileum, ileocecal valve, appendiceal orifice, and rectum were photographed. Scope insertion time was 2 minutes. Scope withdrawal time was 1 minute. The total duration of the procedure was 3 minutes. Findings: The perianal and digital rectal examinations were normal. A large amount of stool was found in the rectum and in the sigmoid colon, precluding visualization. Impression: - Preparation of the colon was poor. - Preparation of the colon was unsatisfactory. - Stool in the rectum and in the sigmoid colon. - No specimens collected. Recommendation: - Patient has a contact number available for emergencies. The signs and symptoms of potential delayed complications were discussed with the patient. Return to normal activities tomorrow. Written discharge instructions were provided to the patient. - Resume previous diet. - Senokot-S 2 tablets PO q HS. - Colace capsule(s) orally 100 mg BID. - Repeat colonoscopy at next available appointment (within 3 months) because the bowel preparation was poor. - Telephone GI clinic to schedule appointment 1 - 2 weeks. Please call GI clinic @ [phone] for apppointment date and time. - Return to primary care physician. Rafa Amaya MD Rafa Amaya MD 08/05/2019 11:17:06 AM Electronically signed by Rafa Amaya MD Number of Addenda: 0 Note Initiated On: 08/05/2019 10:37 AM Estimated Blood Loss: Estimated blood loss was minimal.
[2019-08-05 11:20] VITALS: BP 124/74
== END 2019-08-05 12:05 | disposition home or self-care (01) ==
LOC: M OPP 09:36
PROVIDERS: ATTEND Internal Medicine Gastroenterology
DX: Z12.11 Encounter for screening for malignant neoplasm of colon (principal); K29.70 Gastritis, unspecified, without bleeding; R12 Heartburn; Z83.79 Family history of other diseases of the digestive system; Z79.891 Long term (current) use of opiate analgesic; Z79.899 Other long term (current) drug therapy; Z88.8 Allergy status to other drugs, medicaments and biological substances; Z91.040 Latex allergy status
CPT/HCPCS: 43239; 88305; G0121; J3010

== ENCOUNTER → 2019-08-09 | Outpatient (CLI) | payer MEDICARE, MEDICAID ==
[~2019-08-09] MED LIST changes: -LIDOCAINE 2% INJ 100 MG/5 ML SDV (FOR ANES.) As Ordered ONE; -NS 1,000 ML IV ONE; -propofoL 200 MG/20 ML VIAL As Ordered ONE
--- NOTE | 2019-08-28 07:53 | ECWPNPC ---
PATIENT NAME: APRIL PARMAR : 1965 GENDER: FEMALE VISIT DATE: 08/09/2019 DISCHARGE DATE: 08/09/19 1145 VISIT LOCKED DATE TIME: PHYSICIAN: JOHNATHON JOHN RESOURCE: JOHNATHON JOHN REASON FOR APPOINTMENT 1. BACK/MED MGMNT HISTORY OF PRESENT ILLNESS HISTORY OF PRESENT ILLNESS: HERE FOR F/U OF CHRONIC GENERALIZED BACK PAIN WITH HISTORY OF MULTIPLE LUMBAR AND CERVICAL SURGERIES.CHIEF AREA OF PAIN IS MID THORACIC SPINE.MEDICATION IS SOMEWHAT HELPFUL.DISCUSSED INTERVENTIONAL TREATMENT OPTIONS.RATING PAIN VAS 7/10. PAIN THE PATIENT DESCRIBES THE PAIN... FALL RISK SCREENING: SCREENING :NO FALLS REPORTED IN THE LAST YEAR CURRENT MEDICATIONS TAKING PREMARIN 0.625 MG TABLET 1 TABLET ORALLY ONCE DAILY TAKING SYNTHROID 150 MCG TABLET 1 TABLET ORALLY ONCE A DAY TAKING LIPITOR 10 MG TABLET 1 TABLET ORALLY ONCE A DAY TAKING TIZANIDINE HCL 4 MG TABLET 1 TABLET NEEDED ORALLY THREE TIMES A DAY TAKING TRAMADOL HCL 50 MG TABLET 1 TABLET NEEDED ORALLY Q6H PRN MDD4 TAKING TRAZODONE HCL 50 MG TABLET 1 TO 2 TAB ORALLY BEFORE BEDTIME TAKING OXYCONTIN 15 MG TABLET ER 12 HOUR ABUSE-DETERRENT 1 TABLET ORALLY Q8H TID MDD3 TAKING OXYCODONE HCL 15 MG TABLET 1 TABLET NEEDED ORALLY Q4-6H PRN PAIN MDD5 NOT-TAKING OXYCONTIN 15 MG TABLET EXTENDED RELEASE 12 HOUR 1 TABLET ORALLY TID MDD3 NOT-TAKING OXYCODONE HCL ER 15 MG TABLET ER 12 HOUR ABUSE-DETERRENT 1 TABLET ORALLY Q8H TID MDD3 NOT-TAKING ACCUTANE 30 MGS 1 TAB ORAL BID NOT-TAKING GABAPENTIN 100 MG CAPSULE DIRECTED ORALLY Q8H NOT-TAKING OXYCODONE HCL ER 15 MG TABLET ER 12 HOUR ABUSE-DETERRENT 1 TABLET ORALLY Q8H MDD3 NOT-TAKING OXYCODONE HCL ER 15 MG TABLET ER 12 HOUR ABUSE-DETERRENT 1 TABLET ORALLY Q8H TID MDD3 NOT-TAKING OXYCODONE HCL ER 15 MG TABLET ER 12 HOUR ABUSE-DETERRENT 1 TABLET ORALLY Q8H TID MDD3 NOT-TAKING OXYCODONE HCL ER 15 MG TABLET ER 12 HOUR ABUSE-DETERRENT 1 TABLET ORALLY Q8H MDD3 NOT-TAKING OXYCODONE HCL ER 15 MG TABLET ER 12 HOUR ABUSE-DETERRENT 1 TABLET ORALLY Q8H TID MDD3 NOT-TAKING NUCYNTA ER 150 MG TABLET EXTENDED RELEASE 12 HOUR 1 TABLET ORALLY EVERY 12 HRS MDD2 NOT-TAKING TRAMADOL HCL ER 50 MG TABLET 1 TABLET ORALLY [id number] MEDICATION LIST REVIEWED AND RECONCILED WITH THE PATIENT PAST MEDICAL HISTORY HEAD INJURY WITH SOME APHASIA DDD DJD FIBROMYALGIA INTERSTITIAL CYSTITIS ALLERGIES LATEX (FOR ALLERGY USE ONLY): HIVES,TERRIBLE SORES - ALLERGY SURGICAL HISTORY NECK FUSION 11/07/15 RIGHT KNEE ARTHROSCOPY RIGHT WRIST CARPAL TUNNEL RIGHT SHOULDER CARTILAGE CHOLECYSTECTOMY HYSTERECTOMY 4 C SECTIONS BACK SURGERY X5 ABD INCISION REPAIR DCS PLACED/REMOVED FAMILY HISTORY FATHER: 66 YRS, DIAGNOSED WITH OTHER MALIGNANT NEOPLASM OF UNSPECIFIED SITE MOTHER: ALIVE 76 YRS SIBLINGS: ALIVE, SISTER BRAIN CANCER 1 BROTHER(S) , 1 SISTER(S) . 5 SON(S) , 3 DAUGHTER(S) - HEALTHY. ALCOHOLISM IN FAMILY, SON-CHIARI MALFORMATION. SOCIAL HISTORY GENERAL: TOBACCO USE ARE YOU A:NONSMOKER PAIN CLINIC PFS, CLERGY, PUBLIC HEALTH REFERRALS PFS REFERRAL NEEDED?NO CLERGY REFERRAL NEEDED?NO PUBLIC HEALTH REFERRAL NEEDED?NO WAS THE PROVIDER NOTIFIED OF ANY PERTINENT INFO?YES HAS THE PATIENT BEEN EDUCATED REGARDING HIS/HER PLAN OF CARE?YES HAS THE PATIENT BEEN EDUCATED REGARDING PAIN, THE RISK FOR PAIN, THE IMPORTANCE OF EFFECTIVE PAIN MANAGEMENT, AND THE PAIN ASSESSMENT PROCESS?YES LATEX QUESTIONNAIRE LATEX ALLERGY : HAVE YOU EVER DEVELOPED ANY TYPE OF REACTION AFTER HANDLING LATEX PRODUCTS SUCH RUBBER GLOVES, CONDOMS, DIAPHRAGMS, BALLOONS, SOCKS, OR UNDERWEAR?YES SKIN BLISTERS LATEX ALLERGY : HAVE YOU EVER DEVELOPED ANY TYPE OF REACTION DURING OR AFTER DENTAL APPOINTMENT, VAGINAL/RECTAL EXAMINATION, SURGICAL PROCEDURE, OR ANY OTHER EXPOSURE?YES - PLEASE INDICATE :RUBBER GLOVES - PLEASE INDICATE :SURGICAL PROCEDURE DATE ASKED : 02/05/2019 LATEX RISK : HAVE YOU EVER HAD ANY DIFFICULTY BREATHING OR HIVES AFTER EATING OR HANDLING ANY FRUITS, OR VEGETABLES; SUCH KIWI, BANANAS, STONE FRUITS, OR CHESTNUTSNO LATEX RISK : DO YOU HAVE A PREVIOUS PERSONAL HISTORY OF MORE THAN NINE SURGERIES, SPINA BIFIDA, OR REPEATED CATHERIZATIONS? YES LATEX RISK : ARE YOU FREQUENTLY EXPOSED TO LATEX PRODUCTS IN YOUR OCCUPATION?NO CAFFEINE CAFFEINE USE?YES HOW OFTEN AND HOW MUCH? MINIMAL ADVANCE DIRECTIVE ADVANCE DIRECTIVE DISCUSSED WITH PATIENT:YES PATIENT DOES NOT HAVE ANY HCP AND DECLINED INFORMATION AT THIS TIME. NONDENOMINATIONAL [id number] NONE LANGUAGE LANGUAGES SPOKEN:GERMAN RECREATIONAL DRUG USE DRUG USE?NO LEARNING BARRIERS / SPECIAL NEEDS BARRIERS TO LEARNING?NO HEARING IMPAIRED?NO VISION IMPAIRED?YES COGNITIVELY IMPAIRED?NO :CORRECTIVE LENSES READINESS TO LEARN?YES LEARNING PREFERENCES?NO LEARNING CAPABILITIES PRESENT?YES EMOTIONAL BARRIERS?NO SPECIAL DEVICES?NO PROPERTY PORTFOLIO OFFICER NEEDED?NO REVIEWED WITH PATIENT 05/08/19 1135 JS. HOSPITALIZATION/MAJOR DIAGNOSTIC PROCEDURE SURGERIES REVIEW OF SYSTEMS REVIEWED BY: PROVIDER: JOHNATHON ROSENBERG . CONSTITUTIONAL: ANY CHANGE IN YOUR MEDICAL CONDITION? NO . CHILLS NO . FEVER NO . INFECTION: DO YOU HAVE NEW INFECTIONS? NO . DO YOU HAVE HISTORY OF MRSA? NO . MUSCULOSKELETAL: ANY NEW PATTERNS OF PAIN OR NUMBNESS? NO . GASTROENTEROLOGY: ANY NEW CHANGE IN BOWEL CONTROL? NO . GENITOURINARY: ANY NEW CHANGE IN BLADDER CONTROL? NO . IS THERE A CHANCE YOU COULD BE ? NO . HEMATOLOGY/LYMPH: DO YOU TAKE ANY BLOOD THINNERS? (FOR EXAMPLE- COUMADIN, PLAVIX, AGGRENOX, PLATEL, PRADAXA, OR XARELTO) NO . WHEN WAS YOUR LAST DOSE? DATE: TIME: . NEUROLOGY: HAVE YOU FALLEN IN THE PAST 12 MONTHS? "I FALL ALOT" . ANY NEW EXTREMITY NUMBNESS OR WEAKNESS? NO . CARDIOLOGY: DO YOU HAVE A PACEMAKER OR DEFIBRILLATOR? NO . RESPIRATORY: HAVE YOU BEEN SICK IN THE PAST WEEK? NO . FEVER NO . FLU LIKE SYMPTOMS? NO . COUGH NO . INTEGUMENTARY: DO YOU HAVE ANY RASHES OR OPEN SORES? NO . ALLERGIC/IMMUNO: ARE YOU ALLERGIC TO IV DYE? NO . ANY NEW ALLERGIES? NO . PSYCHIATRIC: DO YOU HAVE THOUGHTS OF HURTING YOURSELF OR SOMEONE ELSE? NO . ARE YOU ABUSED, NEGLECTED, OR IN AN UNSAFE ENVIRONMENT? NO . ENDOCRINOLOGY: ARE YOU DIABETIC? NO . OTHER: DO YOU NEED ANY PRESCRIPTIONS? NO . IF YES, PLEASE LIST: ____ . ANY NEW PROBLEMS WITH YOUR MEDICATIONS? NO . WHEN DID YOU LAST EAT? ____ . WHEN DID YOU LAST DRINK? ____ . WHAT DID YOU LAST DRINK? ____ . NAME OF PERSON DRIVING YOU HOME? ____ . DO YOU HAVE ANY OTHER QUESTIONS OR CONCERNS NO . VITAL SIGNS WT 180.6 LBS, HT 66 IN, BMI 29.15 INDEX, BP 116/61 MM HG, HR 63 /MIN, RR 16 /MIN, TEMP 98.0 F, OXYGEN SAT % 98%, NA INITIALS AW 1056. EXAMINATION GENERAL EXAMINATION: GENERALAWAKE,ALERT ,PLEAASANT . PSYCHAFFECT NORMAL . LUNGS:LUNG AMBROCIO ARE CLEAR TO AUSCULTATION BILATERALLY. GOOD MOVEMENT OF AIR . HEART:S1, S2 IN A REGULAR RATE AND RHYTHM. NO SIGNIFICANT MURMURS, RUBS OR GALLOPS NOTED . ASSESSMENTS POST LAMINECTOMY SYNDROME - M96.1 (PRIMARY) TREATMENT POST LAMINECTOMY SYNDROME CONTINUE TIZANIDINE HCL TABLET, 4 MG, 1 TABLET NEEDED, ORALLY, THREE TIMES A DAY CONTINUE TRAMADOL HCL TABLET, 50 MG, 1 TABLET NEEDED, ORALLY, Q6H PRN MDD4 CONTINUE TRAZODONE HCL TABLET, 50 MG, 1 TO 2 TAB, ORALLY, BEFORE BEDTIME CONTINUE OXYCONTIN TABLET ER 12 HOUR ABUSE-DETERRENT, 15 MG, 1 TABLET, ORALLY, Q8H TID MDD3 CONTINUE OXYCODONE HCL TABLET, 15 MG, 1 TABLET NEEDED, ORALLY, Q4-6H PRN PAIN MDD5 NOTES: ISTOP REGISTRY REVIEWED AND DEMONSTRATES COMPLLIANCE. (REF # ) BRINGS IN MEDICATIONS WHICH IS APPROPRIATE FOR WHAT WAS DISPENSED. RECENT URINE TOXICOLOGY REVIEWED. NO UNAUTHORIZED MEDICATIONS. NO ILLICIT SUBSTANCES AND PRESCRIBED MEDICATIONS WERE PRESENT. URINE TOX TODAY, [facility] NARCOTIC AGREEMENT WAS UPDATED, REVIEWED AND SIGNED TODAY BY THE PATIENT. SEE ATTACHED DOCUMENT FOR FULL DETAILS; SPECIFIC ISSUES WERE REVIEWED: 1) KEEP PAIN MEDS IN THEIR ORIGINAL BOTTLES AND ANY WEEKLY PLANNERS ARE TO BE BROUGHT TO THE PAIN CENTER AT EVERY VISIT. 2) THE PATIENT IS NOT TO INCREASE DOSING OR TIMING OF THEIR PAIN MEDICATION WITHOUT SPECIFIC DIRECTION OF THEIR PAIN CENTERPROVIDER (NOT ER OR OTHER PROVIDERS). 3) ALL PAIN MEDS ARE TO BE KEPT SECURED, IN A LOCKED BOX. 4) NO PAIN MEDS ARE TO BE SHARED WITH ANY OTHER PERSON FOR ANY REASON. 5) NO PAIN MEDS MAY BE TAKEN FROM ANY FRIENDS OR RELATIVES FOR ANY REASON 6) NO MEDS OR SUBSTANCES WHICH ARE NOT LEGAL ARE TO BE USED- NO MARIJUANA, NO COCAINE, AMPHETAMINES, HEROIN, OR OTHERS ARE EVER TO BE USED. 7)URINE TESTING IS DONE TO ACCOUNT FOR MEDS AND SUBSTANCES BEING TAKEN AND WILL BE DONE RANDOMLY.RISKS OF NARCOTIC/OPIOD MEDICATIONS INCLUDES BUT IS NOT LIMITED TO RISK OF DEPENDANCE/DEVELOPMENT OF ADDICTION, MOOD DISTURBANCE AND DEPRESSION, OSTEOPOROSIS, HORMONAL AND LABIDAL CHANGES, RESPIRATORY DEPRESSION AND . PATIENT IS ADVISED NOT TO DRIVE OR DRINK ALCOHOL WHILE ON THESE MEDICATIONS, . PROCEDURE CODES FA211 ESTABILISHED PATIENT [facility] CHARGE DISPOSITION & COMMUNICATION FOLLOW UP 3 MONTHS (REASON: MED MGMNT) ELECTRONICALLY SIGNED BY SHAKIRA PANIAGUA ON 08/27/2019 AT 12:15 PM EDT DISCLAIMER : THIS IS A VISIT SUMMARY EXTRACTED FROM THE [employer] CHART. IT IS NOT A COPY OF THE [employer] PROGRESS NOTE. IVY
== END ==
LOC: M PAIN 11:00
PROVIDERS: ATTEND Nurse Practitioner Family
DX: M96.1 Postlaminectomy syndrome, not elsewhere classified (principal); Z79.891 Long term (current) use of opiate analgesic; Z79.899 Other long term (current) drug therapy; Z91.040 Latex allergy status

== ENCOUNTER → 2019-11-18 | Outpatient (CLI) | payer MEDICARE, MEDICAID ==
[~2019-11-18] MED LIST changes: +OXYC-1 PO; -OXYC15TA76 PO
--- NOTE | 2019-11-21 03:56 | ECWPNPC ---
PATIENT NAME: APRIL PARMAR : 1965 GENDER: FEMALE VISIT DATE: 11/18/2019 DISCHARGE DATE: 11/18/19 1246 VISIT LOCKED DATE TIME: PHYSICIAN: JOHNATHON JOHN RESOURCE: JOHNATHON JOHN REASON FOR APPOINTMENT 1. 3 MONTH HISTORY OF PRESENT ILLNESS GENERAL: HERE FOR FOLLOW-UP OF CHRONIC GENERALIZED BACK PAIN WITH A HISTORY OF MULTIPLE NECK AND LOW BACK SURGERIES. REPORTS SIGNIFICANT INCREASE IN PAIN OVER THE PAST FEW MONTHS. FEELS MEDICATION IS NOT EFFECTIVE IT USED TO BE. DISCUSSED ISSUES OF TOLERANCE WITH OPIOIDS. DISCUSSED OPIOID ROTATION. PATIENT IS RECEPTIVE. -. FALL RISK SCREENING: SCREENING :TWO OR MORE FALLS WITH INJURY IN THE PAST YEAR LEGS JUST GIVE OUT ON HER. SHE HAS HAD MULTIPLE BLACK EYES. LAST TIME WAS 2 WEEKS AGO-ABRASION LEFT INDEX FINGER. PAIN SCREENING: PATIENT HAS A COMPLAINT OF ACUTE OR CHRONIC PAIN :YES LOCATION OF PAIN:NECK, RIGHT SHOULDER, MID BACK, LOW BACK, LEG(S) BOTH LEGS BUT LEFT GREATER INTENSITY OF PAIN (SCALE OF 1 TO 10):7 AVERAGE 6-10 WHAT DOES YOUR PAIN FEEL LIKE:CONTINOUS, SHARP, STABBING, TENDER, THROBBING, SORE, SHOOTING, OTHER "HEAVY" DURATION:CONTINOUS, CONSTANT, ALL DAY, AWAKENS FROM SLEEP PAIN IS INCREASED BY: ANY ACTIVITY, STANDING OR SITTING TOO LONG, BENDING OVER, WALKING TOO FAR PAIN IS DECREASED BY: LYING DOWN AND GETTING IN CERTAIN POSITIONS MAY DECREASE IT ALITTLE BUT NEVER TAKES IT AWAY PAIN HAS INTERFERED WITH THE FOLLOWING:BATHING/DRESSING, MOOD, WALKING ABILITY, EMPLOYMENT, HOUSEWORK, SLEEP, RELATIONSHIP WITH OTHERS, ENJOYMENT OF LIFE, TOILETING PLAN/GOALS/TREATMENT/INTERVENTION/FOLLOW UP:SEE PLAN NURSING NOTE: -. PAIN CENTER INTAKE QUESTIONS: DO YOU HAVE A HISTORY OF MRSA? :NO DO YOU TAKE A BLOOD THINNERS? :NO DO YOU HAVE ANY BLEEDING DISORDERS? :NO ANY NEW NUMBNESS OR WEAKNESS IN YOUR LEGS OR ARMS? :NO ANY PACEMAKER,DEFIBRILLATOR, OR DORSAL COLUMN STIMULATOR? :NO DO YOU HAVE ANY RASHES OR OPEN SORES? :NO ARE YOU ALLERGIC TO IV DYE? :NO ARE YOU DIABETIC? :NO ANY NEW PROBLEMS WITH YOUR MEDICATIONS? :NO HAVE YOU RECEIVED A VACCINE IN THE PAST 30 DAYS? :NO DO YOU PLAN TO RECEIVE A VACCINE IN THE NEXT 21 DAYS? :NO DO YOU NEED ANY PRESCRIPTION? :NO DO YOU TAKE ANY IMMUNOSUPPRESSIVE MEDICATIONS? :NO CURRENT MEDICATIONS TAKING PREMARIN 0.625 MG TABLET 1 TABLET ORALLY ONCE DAILY TAKING SYNTHROID 150 MCG TABLET 1 TABLET ORALLY ONCE A DAY TAKING LIPITOR 10 MG TABLET 1 TABLET ORALLY ONCE A DAY TAKING TRAMADOL HCL 50 MG TABLET 1 TABLET NEEDED ORALLY Q6H PRN MDD4 TAKING TIZANIDINE HCL 4 MG TABLET 1 TABLET NEEDED ORALLY THREE TIMES A DAY TAKING TRAZODONE HCL 50 MG TABLET 2 ORALLY BEFORE BEDTIME TAKING OXYCONTIN 15 MG TABLET ER 12 HOUR ABUSE-DETERRENT 1 TABLET ORALLY Q8H TID MDD3 TAKING OXYCODONE HCL 15 MG TABLET 1 TABLET NEEDED ORALLY Q4-6H PRN PAIN MDD5 NOT-TAKING ACCUTANE 30 MGS 1 TAB ORAL BID NOT-TAKING GABAPENTIN 100 MG CAPSULE DIRECTED ORALLY Q8H NOT-TAKING NUCYNTA ER 150 MG TABLET EXTENDED RELEASE 12 HOUR 1 TABLET ORALLY EVERY 12 HRS MDD2 DISCONTINUED OXYCONTIN 15 MG TABLET EXTENDED RELEASE 12 HOUR 1 TABLET ORALLY TID MDD3, NOTES: DUPLICATE DISCONTINUED OXYCODONE HCL ER 15 MG TABLET ER 12 HOUR ABUSE-DETERRENT 1 TABLET ORALLY Q8H TID MDD3, NOTES: DUPLICATE DISCONTINUED OXYCODONE HCL ER 15 MG TABLET ER 12 HOUR ABUSE-DETERRENT 1 TABLET ORALLY Q8H MDD3 DISCONTINUED OXYCODONE HCL ER 15 MG TABLET ER 12 HOUR ABUSE-DETERRENT 1 TABLET ORALLY Q8H TID MDD3 DISCONTINUED OXYCODONE HCL ER 15 MG TABLET ER 12 HOUR ABUSE-DETERRENT 1 TABLET ORALLY Q8H TID MDD3 DISCONTINUED OXYCODONE HCL ER 15 MG TABLET ER 12 HOUR ABUSE-DETERRENT 1 TABLET ORALLY Q8H MDD3 DISCONTINUED OXYCODONE HCL ER 15 MG TABLET ER 12 HOUR ABUSE-DETERRENT 1 TABLET ORALLY Q8H TID MDD3 DISCONTINUED TRAMADOL HCL ER 50 MG TABLET 1 TABLET ORALLY [id number], NOTES: DUPLICATE MEDICATION LIST REVIEWED AND RECONCILED WITH THE PATIENT PAST MEDICAL HISTORY HEAD INJURY WITH SOME APHASIA DDD DJD FIBROMYALGIA INTERSTITIAL CYSTITIS ALLERGIES LATEX (FOR ALLERGY USE ONLY): HIVES,TERRIBLE SORES - ALLERGY SURGICAL HISTORY NECK FUSION 11/07/15 RIGHT KNEE ARTHROSCOPY RIGHT WRIST CARPAL TUNNEL RIGHT SHOULDER CARTILAGE CHOLECYSTECTOMY HYSTERECTOMY 4 C SECTIONS BACK SURGERY X5 ABD INCISION REPAIR DCS PLACED/REMOVED CYSTOSCOPIES X2 FAMILY HISTORY FATHER: 66 YRS, DIAGNOSED WITH OTHER MALIGNANT NEOPLASM OF UNSPECIFIED SITE MOTHER: ALIVE 76 YRS SIBLINGS: ALIVE, SISTER BRAIN CANCER, [place] AND STROKE 1 BROTHER(S) , 1 SISTER(S) . 5 SON(S) , 3 DAUGHTER(S) - HEALTHY. ALCOHOLISM IN FAMILY, SON-CHIARI MALFORMATION. SOCIAL HISTORY GENERAL: TOBACCO USE ARE YOU A:NONSMOKER LATEX QUESTIONNAIRE LATEX ALLERGY : HAVE YOU EVER DEVELOPED ANY TYPE OF REACTION AFTER HANDLING LATEX PRODUCTS SUCH RUBBER GLOVES, CONDOMS, DIAPHRAGMS, BALLOONS, SOCKS, OR UNDERWEAR?YES SKIN BLISTERS - PLEASE INDICATE :RUBBER GLOVES LATEX ALLERGY : HAVE YOU EVER DEVELOPED ANY TYPE OF REACTION DURING OR AFTER DENTAL APPOINTMENT, VAGINAL/RECTAL EXAMINATION, SURGICAL PROCEDURE, OR ANY OTHER EXPOSURE?YES - PLEASE INDICATE :SURGICAL PROCEDURE LATEX RISK : HAVE YOU EVER HAD ANY DIFFICULTY BREATHING OR HIVES AFTER EATING OR HANDLING ANY FRUITS, OR VEGETABLES; SUCH KIWI, BANANAS, STONE FRUITS, OR CHESTNUTSNO LATEX RISK : DO YOU HAVE A PREVIOUS PERSONAL HISTORY OF MORE THAN NINE SURGERIES, SPINA BIFIDA, OR REPEATED CATHERIZATIONS? YES - PLEASE INDICATE : > 9 SURGERIES LATEX RISK : ARE YOU FREQUENTLY EXPOSED TO LATEX PRODUCTS IN YOUR OCCUPATION?NO DATE ASKED : 11/18/2019 RECREATIONAL DRUG USE DRUG USE?NO CAFFEINE CAFFEINE USE?YES HOW OFTEN AND HOW MUCH? 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 REVIEWED WITH PATIENT 05/08/19 1135 JS. HOSPITALIZATION/MAJOR DIAGNOSTIC PROCEDURE SURGERIES REVIEW OF SYSTEMS CONSTITUTIONAL: ANY RECENT FEVER OR ILLNESS NO . CHILLS NO . GASTROENTEROLOGY: BOWEL INCONTINENCE NO . ANY NEW CHANGE IN BOWEL CONTROL? NO . ABDOMINAL PAIN NO . CONSTIPATION NO . GENITOURINARY: ANY NEW CHANGE IN BLADDER CONTROL? NO . IS THERE A CHANCE YOU COULD BE ? NO . URINARY INCONTINENCE NO . CARDIOLOGY: CHEST PRESSURE NO . CHEST PAIN NO . RESPIRATORY: COUGH NO . SHORTNESS OF BREATH NO . VITAL SIGNS WT 185.0 LBS, HT 66 IN, BMI 29.86 INDEX, BP 140/67 MM HG, HR 62 /MIN, RR 16 /MIN, TEMP 97.8 F, OXYGEN SAT % 98%, SAFE IN ENV? (Y/N) Y, NA INITIALS TL 1111, REVIEWED BY: ARIELA. EXAMINATION GENERAL EXAMINATION: GENERALAWAKE,ALERT ,PLEAASANT . PSYCHAFFECT NORMAL . LUNGS:LUNG AMBROCIO ARE CLEAR TO AUSCULTATION BILATERALLY. GOOD MOVEMENT OF AIR . HEART:S1, S2 IN A REGULAR RATE AND RHYTHM. NO SIGNIFICANT MURMURS, RUBS OR GALLOPS NOTED . ASSESSMENTS POST LAMINECTOMY SYNDROME - M96.1 (PRIMARY) CHRONIC PRESCRIPTION OPIATE USE - Z79.891 TREATMENT POST LAMINECTOMY SYNDROME CONTINUE TRAMADOL HCL TABLET, 50 MG, 1 TABLET NEEDED, ORALLY, Q6H PRN MDD4 CONTINUE TIZANIDINE HCL TABLET, 4 MG, 1 TABLET NEEDED, ORALLY, THREE TIMES A DAY DECREASE OXYCONTIN TABLET ER 12 HOUR ABUSE-DETERRENT, 15 MG, 1 TABLET, ORALLY, 1 AT 8 AM AND 1 AT 12 NOON MDD 2, 30 DAYS, 60, REFILLS 0 REFILL OXYCODONE HCL TABLET, 15 MG, 1 TABLET NEEDED, ORALLY, Q4-6H PRN PAIN MDD5, 30 DAYS, 150, REFILLS 0 START NUCYNTA ER TABLET EXTENDED RELEASE 12 HOUR, 250 MG, 1 TABLET, ORALLY, , DAILY AT BEDTIME MDD 1, 30 DAYS, 30, REFILLS 0 NOTES: DISCUSSED OPIOID ROTATION. TODAY WE WILL REDUCE OXYCODONE 15 MG EXTENDED RELEASE TO 1 IN THE MORNING AND ONE AT NOON. START NUCYNTA EXTENDED RELEASE 250 MG 1 AT BEDTIME. CONTINUE OXYCODONE 15 MG SHORT ACTING ONE EVERY 4-6 HOURS NEEDED WITH MAXIMUM DAILY DOSE OF 5. WE WILL DO TELEPHONE VISIT IN 1 MONTH TO EVALUATE PROGRESS. CONSIDER AT THAT TIME REDUCING OXYCODONE EXTENDED RELEASE AND ADJUSTING NUCYNTA ER. , ISTOP REGISTRY REVIEWED AND DEMONSTRATES COMPLLIANCEBRINGS IN MEDICATIONS WHICH IS APPROPRIATE FOR WHAT WAS DISPENSED. RECENT URINE TOXICOLOGY REVIEWED. NO UNAUTHORIZED MEDICATIONS. NO ILLICIT SUBSTANCES AND PRESCRIBED MEDICATIONS WERE PRESENT, RISKS OF NARCOTIC/OPIOD MEDICATIONS INCLUDES BUT IS NOT LIMITED TO RISK OF DEPENDANCE/DEVELOPMENT OF ADDICTION, MOOD DISTURBANCE AND DEPRESSION, OSTEOPOROSIS, HORMONAL AND LABIDAL CHANGES, RESPIRATORY DEPRESSION AND . PATIENT IS ADVISED NOT TO DRIVE OR DRINK ALCOHOL WHILE ON THESE MEDICATIONS. PREVENTIVE MEDICINE PAIN CLINIC TEACHING: MEDICATIONS PT DECLINED INFORMATION ON NUCYNTA STATING SHE WILL GET IT FROM THE PHARMACY AND SHE HAS TAKEN IT IN THE PAST. SHE STATES SHE UNDERSTANDS THE CHANGE IN HOW JOHNATHON WANTS HER TO TAKE HER MEDS.. PROCEDURE CODES FA211 ESTABILISHED PATIENT [facility] CHARGE DISPOSITION & COMMUNICATION FOLLOW UP 1 MOS TELEPHONE VISIT,3 MONTHS IN CLINIC (REASON: MED MGMNT) ELECTRONICALLY SIGNED BY SHAKIRA PANIAGUA ON 11/20/2019 AT 01:49 PM EDT DISCLAIMER : THIS IS A VISIT SUMMARY EXTRACTED FROM THE [employer] CHART. IT IS NOT A COPY OF THE [employer] PROGRESS NOTE. IVY
== END ==
LOC: M PAIN 11:30
PROVIDERS: ATTEND Nurse Practitioner Family
DX: M96.1 Postlaminectomy syndrome, not elsewhere classified (principal); Z79.891 Long term (current) use of opiate analgesic; Z79.899 Other long term (current) drug therapy; Z91.040 Latex allergy status

== ENCOUNTER → 2020-03-10 | Outpatient (CLI) | payer MEDICARE, MEDICAID ==
[~2020-03-10] MED LIST changes: +ATOR1TAB19 PO
== END ==
LOC: M PAIN 11:38
PROVIDERS: ATTEND Nurse Practitioner Family
DX: M96.1 Postlaminectomy syndrome, not elsewhere classified (principal); Z79.891 Long term (current) use of opiate analgesic

== ENCOUNTER → 2020-06-09 | Outpatient (CLI) | payer MEDICARE, MEDICAID ==
--- NOTE | 2020-06-18 04:19 | ECWPNPC ---
PATIENT NAME: APRIL PARMAR : 1965 GENDER: FEMALE VISIT DATE: 06/09/2020 DISCHARGE DATE: 06/09/20 0949 VISIT LOCKED DATE TIME: PHYSICIAN: JOHNATHON JOHN RESOURCE: JOHNATHON JOHN REASON FOR APPOINTMENT 1. [facility] - [phone] HISTORY OF PRESENT ILLNESS FALL RISK SCREENING: PATIENT IS AGREEABLE TO TELEMED VISIT VIA ZOOM. PATIENT IS UNABLE TO COME INTO CLINIC DUE TO EXPOSURE TO COVID 19. PATIENT IS RATING PAIN LEVEL AN 8/10 WITH IMPAIRMENT IN ALL ADLS DUE TO PAIN. PATIENT ALSO IS ON HIGH DOSE OF NARCOTIC PAIN MEDICATION. STATES THAT SINCE WE TOOK HER OFF TRAMADOL SHE HAS BEEN TAKING LARGE DOSES OF NONSTEROIDALS. TODAY WE HAD A LONG TALK IN REGARDS TO MEDICATION USE. CURRENTLY ON GREATER THAN 100 MEQ OF MORPHINE A DAY AND HAVING UNCONTROLLED PAIN. REVIEWED MEDICATIONS. OUR GOAL WOULD BE TO USE HIGHER DOSE OF LONG-ACTING. I WOULD RECOMMEND TRAMADOL RESTARTED FOR MODERATE PAIN EPISODES AND OXYCODONE 15 MG SHORT ACTING FOR SEVERE PAIN EPISODES. I DO NOT WANT HER TAKING 4 OXYCODONE 15 MG AND 4 TRAMADOL 50 MG DAILY. INSTRUCTED TO COMBINE TYLENOL 500 2 TABLETS WITH TRAMADOL 50 MG TABLET PERIODICALLY INSTEAD OF OXYCODONE 15 MG FOR MODERATE EPISODES OF PAIN. PATIENT HAS A HISTORY OF MULTIPLE NECK AND LOW BACK SURGERIES. SCREENING :TWO OR MORE FALLS WITH INJURY IN THE PAST YEAR LEGS JUST GIVE OUT ON HER. SHE HAS HAD MULTIPLE BLACK EYES. PAIN SCREENING: PATIENT HAS A COMPLAINT OF ACUTE OR CHRONIC PAIN :YES LOCATION OF PAIN:NECK, MID BACK, LOW BACK, LEG(S) INTENSITY OF PAIN (SCALE OF 1 TO 10):8 WHAT DOES YOUR PAIN FEEL LIKE:CONTINOUS, SHARP, STABBING, TENDER, THROBBING, SORE, SHOOTING, OTHER "HEAVY" DURATION:CONTINOUS, CONSTANT, ALL DAY, AWAKENS FROM SLEEP PAIN IS INCREASED BY: ANY ACTIVITY, STANDING OR SITTING TOO LONG, BENDING OVER, WALKING TOO FAR PAIN IS DECREASED BY: LYING DOWN AND GETTING IN CERTAIN POSITIONS MAY DECREASE IT A LITTLE BUT NEVER TAKES IT AWAY PAIN HAS INTERFERED WITH THE FOLLOWING:BATHING/DRESSING, MOOD, WALKING ABILITY, EMPLOYMENT, HOUSEWORK, SLEEP, RELATIONSHIP WITH OTHERS, ENJOYMENT OF LIFE, TOILETING PAIN CENTER INTAKE QUESTIONS: DO YOU HAVE A HISTORY OF MRSA? :NO DO YOU TAKE A BLOOD THINNERS? :NO DO YOU HAVE ANY BLEEDING DISORDERS? :NO ANY NEW NUMBNESS OR WEAKNESS IN YOUR LEGS OR ARMS? :NO ANY PACEMAKER,DEFIBRILLATOR, OR DORSAL COLUMN STIMULATOR? :NO DO YOU HAVE ANY RASHES OR OPEN SORES? :NO ARE YOU ALLERGIC TO IV DYE? :NO ARE YOU DIABETIC? :NO ANY NEW PROBLEMS WITH YOUR MEDICATIONS? :NO HAVE YOU RECEIVED A VACCINE IN THE PAST 30 DAYS? :NO DO YOU PLAN TO RECEIVE A VACCINE IN THE NEXT 21 DAYS? :NO DO YOU NEED ANY PRESCRIPTION? :NO DO YOU TAKE ANY IMMUNOSUPPRESSIVE MEDICATIONS? :NO CURRENT MEDICATIONS TAKING PREMARIN 0.625 MG TABLET 1 TABLET ORALLY ONCE DAILY TAKING SYNTHROID 150 MCG TABLET 1 TABLET ORALLY ONCE A DAY TAKING LIPITOR 10 MG TABLET 1 TABLET ORALLY ONCE A DAY TAKING TIZANIDINE HCL 4 MG TABLET 1 TABLET NEEDED ORALLY THREE TIMES A DAY TAKING OXYCODONE HCL 15 MG TABLET 1 TABLET NEEDED ORALLY Q4-6H PRN PAIN MDD5 TAKING OXYCONTIN 15 MG TABLET ER 12 HOUR ABUSE-DETERRENT 1 TABLET ORALLY 1 Q8H TID MDD3 TAKING TRAZODONE HCL 50 MG TABLET 2 ORALLY BEFORE BEDTIME NOT-TAKING NUCYNTA ER 250 MG TABLET EXTENDED RELEASE 12 HOUR 1 TABLET ORALLY , DAILY AT BEDTIME MDD 1 NOT-TAKING TRAMADOL HCL 50 MG TABLET 1 TABLET NEEDED ORALLY Q6H PRN MDD4 NOT-TAKING ACCUTANE 30 MGS 1 TAB ORAL BID NOT-TAKING GABAPENTIN 100 MG CAPSULE DIRECTED ORALLY Q8H NOT-TAKING NUCYNTA ER 150 MG TABLET EXTENDED RELEASE 12 HOUR 1 TABLET ORALLY EVERY 12 HRS MDD2 MEDICATION LIST REVIEWED AND RECONCILED WITH THE PATIENT PAST MEDICAL HISTORY HEAD INJURY WITH SOME APHASIA DDD DJD FIBROMYALGIA INTERSTITIAL CYSTITIS POST LAMINECTOMY SYNDROME ALLERGIES LATEX (FOR ALLERGY USE ONLY): HIVES,TERRIBLE SORES - ALLERGY SURGICAL HISTORY NECK FUSION 11/07/15 RIGHT KNEE ARTHROSCOPY RIGHT WRIST CARPAL TUNNEL RIGHT SHOULDER CARTILAGE CHOLECYSTECTOMY HYSTERECTOMY 4 C SECTIONS BACK SURGERY X5 ABD INCISION REPAIR DCS PLACED/REMOVED CYSTOSCOPIES X2 FAMILY HISTORY FATHER: 66 YRS, DIAGNOSED WITH OTHER MALIGNANT NEOPLASM OF UNSPECIFIED SITE MOTHER: ALIVE 76 YRS SIBLINGS: ALIVE, SISTER BRAIN CANCER, FL AND STROKE 1 BROTHER(S) , 1 SISTER(S) . 5 SON(S) , 3 DAUGHTER(S) - HEALTHY. ALCOHOLISM IN FAMILY, SON-CHIARI MALFORMATION. SOCIAL HISTORY GENERAL: TOBACCO USE ARE YOU A:NONSMOKER LATEX QUESTIONNAIRE LATEX ALLERGY : HAVE YOU EVER DEVELOPED ANY TYPE OF REACTION AFTER HANDLING LATEX PRODUCTS SUCH RUBBER GLOVES, CONDOMS, DIAPHRAGMS, BALLOONS, SOCKS, OR UNDERWEAR?YES SKIN BLISTERS LATEX ALLERGY : HAVE YOU EVER DEVELOPED ANY TYPE OF REACTION DURING OR AFTER DENTAL APPOINTMENT, VAGINAL/RECTAL EXAMINATION, SURGICAL PROCEDURE, OR ANY OTHER EXPOSURE?YES - PLEASE INDICATE :RUBBER GLOVES - PLEASE INDICATE :SURGICAL PROCEDURE DATE ASKED : 11/18/2019 LATEX RISK : HAVE YOU EVER HAD ANY DIFFICULTY BREATHING OR HIVES AFTER EATING OR HANDLING ANY FRUITS, OR VEGETABLES; SUCH KIWI, BANANAS, STONE FRUITS, OR CHESTNUTSNO LATEX RISK : DO YOU HAVE A PREVIOUS PERSONAL HISTORY OF MORE THAN NINE SURGERIES, SPINA BIFIDA, OR REPEATED CATHERIZATIONS? YES - PLEASE INDICATE : > 9 SURGERIES LATEX RISK : ARE YOU FREQUENTLY EXPOSED TO LATEX PRODUCTS IN YOUR OCCUPATION?NO RECREATIONAL DRUG USE DRUG USE?NO CAFFEINE CAFFEINE USE?YES HOW OFTEN AND HOW MUCH? 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 REVIEWED WITH PATIENT 05/08/19 0975 JS. HOSPITALIZATION/MAJOR DIAGNOSTIC PROCEDURE SURGERIES REVIEW OF SYSTEMS CONSTITUTIONAL: ANY RECENT FEVER NO . CHILLS NO . WEIGHT CHANGE OF UNKNOWN REASONS NO . GASTROENTEROLOGY: NEW UNEXPLAINABLE CHANGES IN BOWEL CONTROL NO . CONSTIPATION NO . GENITOURINARY: ANY NEW CHANGE IN BLADDER CONTROL? NO . NEUROLOGY: NEW ONSET DIZZINESS OR NEUROLOGICAL CHANGES NOT MENTIONED NO . NEW NUMBNESS OR PAIN PATTERNS NOT MENTIONED AND PERTINENT TO TODAY'S VISIT NO . CARDIOLOGY: NEW CHEST PRESSURE NO . NEW CHEST PAIN NO . RESPIRATORY: UNEXPLAINABLE COUGH NO . NEW SHORTNESS OF BREATH NO . ASSESSMENTS POST LAMINECTOMY SYNDROME - M96.1 (PRIMARY) CHRONIC PRESCRIPTION OPIATE USE - Z79.891 TREATMENT POST LAMINECTOMY SYNDROME CONTINUE TIZANIDINE HCL TABLET, 4 MG, 1 TABLET NEEDED, ORALLY, THREE TIMES A DAY DECREASE OXYCODONE HCL TABLET, 15 MG, 1 TABLET NEEDED, ORALLY, Q6H PRN FOR SEVERE PAIN MDD4, 30 DAYS, 120, REFILLS 0 INCREASE OXYCONTIN TABLET ER 12 HOUR ABUSE-DETERRENT, 30 MG, 1 TABLET, ORALLY, 1 TAB BID MDD2, 30 DAYS, 60, REFILLS 0 REFILL TRAMADOL HCL TABLET, 50 MG, 1 TABLET NEEDED, ORALLY, Q6H PRN MDD4, 30 DAYS, 120, REFILLS 2 NOTES: MEDICATION FOR CHRONIC PAIN IS UPDATED: INCREASE OXYCODONE EXTENDED RELEASE 30 MG TWICE A DAY. CONTINUE ALEVE TWICE A DAY. USING OXYCODONE 15 MG INSTANT RELEASE ONE TABLET EVERY 6 HOURS NEEDED FOR SEVERE PAIN EPISODES. START TRAMADOL 50 MG 1 EVERY 6 HOURS WITH TYLENOL 500 MG 2 TABLETS FOR MODERATE PAIN EPISODES. ADVISED TO OANH DOWN WHEN SHE TAKES HER MEDICATIONS. ADVISED NOT TO TAKE 4 TABLETS OF OXYCODONE AND 4 TABLETS OF TRAMADOL DAILY. IT SHOULD BE A MAXIMUM OF 4 TABLETS OF EITHER TRAMADOL OR OXYCODONE. FOLLOW-UP IN CLINIC IS SCHEDULED IN 2 MONTHS. URINE TOXICOLOGY AT FOLLOW-UP VISIT. REFER TO [facility] TO EVALUATE FOR TENS UNIT FOR PELVIC PAIN. TOTAL TIME SPENT DURING ZOOM TELEMED VISIT WAS APPROXIMATELY 15 MINUTES. DISPOSITION & COMMUNICATION FOLLOW UP 2 MONTHS REFER TO [facility] TENS UNIT PELVIC PAIN (REASON: MED MGMNT/RECENT MED CHANGES/UTOX) ELECTRONICALLY SIGNED BY SHAKIRA PANIAGUA ON 06/17/2020 AT 09:12 AM EST DISCLAIMER : THIS IS A VISIT SUMMARY EXTRACTED FROM THE [employer] CHART. IT IS NOT A COPY OF THE [employer] PROGRESS NOTE. IVY
== END ==
LOC: M PAIN 11:30
PROVIDERS: ATTEND Nurse Practitioner Family
DX: M96.1 Postlaminectomy syndrome, not elsewhere classified (principal); M79.7 Fibromyalgia; Z91.040 Latex allergy status; Z79.891 Long term (current) use of opiate analgesic; Z79.899 Other long term (current) drug therapy

== ENCOUNTER → 2020-08-10 | Outpatient (CLI) | payer MEDICARE, MEDICAID ==
--- NOTE | 2020-08-16 00:35 | ECWPNPC ---
PATIENT NAME: APRIL PARMAR : 1965 GENDER: FEMALE VISIT DATE: 08/10/2020 DISCHARGE DATE: 08/10/20 1147 VISIT LOCKED DATE TIME: PHYSICIAN: JOHNATHON JOHN RESOURCE: JOHNATHON JOHN REASON FOR APPOINTMENT 1. MED MGMNT/RECENT MED CHANGES/UTOX HISTORY OF PRESENT ILLNESS DEPRESSION SCREENING: PHQ-9 LITTLE INTEREST OR PLEASURE IN DOING THINGSNEARLY EVERY DAY FEELING DOWN, DEPRESSED, OR HOPELESSNEARLY EVERY DAY TROUBLE FALLING OR STAYING ASLEEP, OR SLEEPING TOO MUCHNEARLY EVERY DAY FEELING TIRED OR HAVING LITTLE ENERGYNEARLY EVERY DAY POOR APPETITE OR OVEREATING NOT AT ALL FEELING BAD ABOUT YOURSELF-OR THAT YOU ARE A FAILURE OR HAVE LET YOURSELF OR YOUR FAMILY DOWN NOT AT ALL TROUBLE CONCENTRATING ON THINGS, SUCH READING THE NEWSPAPER OR WATCHING TELEVISION NEARLY EVERY DAY MOVING OR SPEAKING SO SLOWLY THAT OTHER PEOPLE COULD HAVE NOTICED. OR THE OPPOSITE- BEING SO FIDGETY OR RESTLESS THAT YOU HAVE BEEN MOVING AROUND A LOT MORE THAN USUALNOT AT ALL THOUGHTS THAT YOU WOULD BE BETTER OFF , OR OF HURTING YOURSELF IN SOME WAY?NOT AT ALL TOTAL SCORE:15 INTERPRETATIONMODERATELY SEVERE DEPRESSION PHQ-2 (2015 EDITION) LITTLE INTEREST OR PLEASURE IN DOING THINGS?NEARLY EVERY DAY FEELING DOWN, DEPRESSED, OR HOPELESS?NEARLY EVERY DAY TOTAL SCORE6 GENERAL: HERE FOR FOLLOW-UP OF CHRONIC GENERALIZED BACK PAIN WITH A HISTORY OF MULTIPLE NECK AND LOW BACK SURGERIES. REPORTS SIGNIFICANT INCREASE IN PAIN OVER THE PAST FEW MONTHS. FEELS MEDICATION IS HELPFUL. WE HAVE TRIED MULTIPLE MEDIACATION TRIALS WITH EITHER SIDE EFFECTS OR NO IMPROVEMENT IN PAIN,. - -. FALL RISK SCREENING: SCREENING :ONE FALL WITH INJURY IN THE PAST YEAR PATIENT DID NOT SEEK MEDICAL TREATMENT PAIN SCREENING: PATIENT HAS A COMPLAINT OF ACUTE OR CHRONIC PAIN :YES LOCATION OF PAIN:NECK, UPPER BACK, MID BACK, LOW BACK INTENSITY OF PAIN (SCALE OF 1 TO 10):7 WHAT DOES YOUR PAIN FEEL LIKE:BURNING, CONTINOUS, SHARP, STABBING, THROBBING DURATION:CONTINOUS, CONSTANT, AWAKENS FROM SLEEP PAIN IS INCREASED BY:ACTIVITIES, PROLONGED STANDING PAIN IS DECREASED BY:USE OF PAIN MEDICATIONS, SITTING NURSING NOTE: -. PAIN CENTER INTAKE QUESTIONS: DO YOU HAVE A HISTORY OF MRSA? :NO DO YOU TAKE A BLOOD THINNERS? :NO DO YOU HAVE ANY BLEEDING DISORDERS? :NO ANY NEW NUMBNESS OR WEAKNESS IN YOUR LEGS OR ARMS? :NO ANY PACEMAKER,DEFIBRILLATOR, OR DORSAL COLUMN STIMULATOR? :NO DO YOU HAVE ANY RASHES OR OPEN SORES? :NO ARE YOU ALLERGIC TO IV DYE? :NO ARE YOU DIABETIC? :NO ANY NEW PROBLEMS WITH YOUR MEDICATIONS? :NO HAVE YOU RECEIVED A VACCINE IN THE PAST 30 DAYS? :NO DO YOU PLAN TO RECEIVE A VACCINE IN THE NEXT 21 DAYS? :NO DO YOU NEED ANY PRESCRIPTION? :YES OXYCODONE AND OXYCONTIN DO YOU TAKE ANY IMMUNOSUPPRESSIVE MEDICATIONS? :NO IS THERE A CHANCE YOU COULD BE ? :NO ARE YOU BREAST FEEDING? :NO CURRENT MEDICATIONS TAKING PREMARIN 0.625 MG TABLET 1 TABLET ORALLY ONCE DAILY TAKING SYNTHROID 150 MCG TABLET 1 TABLET ORALLY ONCE A DAY TAKING LIPITOR 10 MG TABLET 1 TABLET ORALLY ONCE A DAY TAKING TRAZODONE HCL 50 MG TABLET 2 ORALLY BEFORE BEDTIME TAKING TIZANIDINE HCL 4 MG TABLET 1 TABLET NEEDED ORALLY THREE TIMES A DAY TAKING OXYCODONE HCL 15 MG TABLET 1 TABLET NEEDED ORALLY Q4HR PRN MDD5 TAKING OXYCONTIN 15 MG TABLET ER 12 HOUR ABUSE-DETERRENT 1 TABLET ORALLY Q8H MDD3 NOT-TAKING NUCYNTA ER 250 MG TABLET EXTENDED RELEASE 12 HOUR 1 TABLET ORALLY , DAILY AT BEDTIME MDD 1 NOT-TAKING ACCUTANE 30 MGS 1 TAB ORAL BID NOT-TAKING GABAPENTIN 100 MG CAPSULE DIRECTED ORALLY Q8H NOT-TAKING NUCYNTA ER 150 MG TABLET EXTENDED RELEASE 12 HOUR 1 TABLET ORALLY EVERY 12 HRS MDD2 MEDICATION LIST REVIEWED AND RECONCILED WITH THE PATIENT PAST MEDICAL HISTORY HEAD INJURY WITH SOME APHASIA DDD DJD FIBROMYALGIA INTERSTITIAL CYSTITIS POST LAMINECTOMY SYNDROME ALLERGIES LATEX (FOR ALLERGY USE ONLY): HIVES,TERRIBLE SORES - ALLERGY SOCIAL HISTORY GENERAL: TOBACCO USE ARE YOU A:NONSMOKER LATEX QUESTIONNAIRE LATEX ALLERGY : HAVE YOU EVER DEVELOPED ANY TYPE OF REACTION AFTER HANDLING LATEX PRODUCTS SUCH RUBBER GLOVES, CONDOMS, DIAPHRAGMS, BALLOONS, SOCKS, OR UNDERWEAR?YES SKIN BLISTERS - PLEASE INDICATE :RUBBER GLOVES LATEX ALLERGY : HAVE YOU EVER DEVELOPED ANY TYPE OF REACTION DURING OR AFTER DENTAL APPOINTMENT, VAGINAL/RECTAL EXAMINATION, SURGICAL PROCEDURE, OR ANY OTHER EXPOSURE?YES - PLEASE INDICATE :SURGICAL PROCEDURE LATEX RISK : HAVE YOU EVER HAD ANY DIFFICULTY BREATHING OR HIVES AFTER EATING OR HANDLING ANY FRUITS, OR VEGETABLES; SUCH KIWI, BANANAS, STONE FRUITS, OR CHESTNUTSNO LATEX RISK : DO YOU HAVE A PREVIOUS PERSONAL HISTORY OF MORE THAN NINE SURGERIES, SPINA BIFIDA, OR REPEATED CATHERIZATIONS? YES - PLEASE INDICATE : > 9 SURGERIES LATEX RISK : ARE YOU FREQUENTLY EXPOSED TO LATEX PRODUCTS IN YOUR OCCUPATION?NO DATE ASKED : 08/10/2020 ALCOHOL USE: NO. RECREATIONAL DRUG USE DRUG USE?NO CAFFEINE CAFFEINE USE?YES HOW OFTEN AND HOW MUCH? 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 REVIEWED WITH PATIENT 05/08/19 1135 JS. REVIEW OF SYSTEMS CONSTITUTIONAL: ANY RECENT FEVER NO . CHILLS NO . WEIGHT CHANGE OF UNKNOWN REASONS NO . GASTROENTEROLOGY: NEW UNEXPLAINABLE CHANGES IN BOWEL CONTROL NO . CONSTIPATION NO . GENITOURINARY: ANY NEW CHANGE IN BLADDER CONTROL? NO . NEUROLOGY: NEW ONSET DIZZINESS OR NEUROLOGICAL CHANGES NOT MENTIONED NO . NEW NUMBNESS OR PAIN PATTERNS NOT MENTIONED AND PERTINENT TO TODAY'S VISIT NO . CARDIOLOGY: NEW CHEST PRESSURE NO . PATIENT DENIES NO . RESPIRATORY: UNEXPLAINABLE COUGH NO . NEW SHORTNESS OF BREATH NO . VITAL SIGNS WT 169.8 LBS, HT 66 IN, BMI 27.40 INDEX, BP 123/79 MM HG, HR 55 /MIN, RR 18 /MIN, TEMP 96.0 F, OXYGEN SAT % 96%, SAFE IN ENV? (Y/N) YES, NA INITIALS AW 1054, REVIEWED BY: JACQUIE FERNANDEZ MA. EXAMINATION GENERAL EXAMINATION: GENERALAWAKE,ALERT ,PLEAASANT . PSYCHAFFECT NORMAL . LUNGS:LUNG AMBROCIO ARE CLEAR TO AUSCULTATION BILATERALLY. GOOD MOVEMENT OF AIR . HEART:S1, S2 IN A REGULAR RATE AND RHYTHM. NO SIGNIFICANT MURMURS, RUBS OR GALLOPS NOTED . ASSESSMENTS POST LAMINECTOMY SYNDROME - M96.1 (PRIMARY) CHRONIC PRESCRIPTION OPIATE USE - Z79.891 TREATMENT POST LAMINECTOMY SYNDROME CONTINUE TIZANIDINE HCL TABLET, 4 MG, 1 TABLET NEEDED, ORALLY, THREE TIMES A DAY REFILL OXYCODONE HCL TABLET, 15 MG, 1 TABLET NEEDED, ORALLY, Q4HR PRN MDD5, 30 DAYS, 150, REFILLS 0 REFILL OXYCONTIN TABLET ER 12 HOUR ABUSE-DETERRENT, 15 MG, 1 TABLET, ORALLY, Q8H MDD3, 30 DAYS, 90, REFILLS 0 NOTES: ISTOP REGISTRY REVIEWED AND DEMONSTRATES COMPLLIANCE. RECENT URINE TOXICOLOGY REVIEWED. NO UNAUTHORIZED MEDICATIONS. NO ILLICIT SUBSTANCES AND PRESCRIBED MEDICATIONS WERE PRESENT. URINE TOX TODAY , RISKS OF NARCOTIC/OPIOD MEDICATIONS INCLUDES BUT IS NOT LIMITED TO RISK OF DEPENDANCE/DEVELOPMENT OF ADDICTION, MOOD DISTURBANCE AND DEPRESSION, OSTEOPOROSIS, HORMONAL AND LABIDAL CHANGES, RESPIRATORY DEPRESSION AND . PATIENT IS ADVISED NOT TO DRIVE OR DRINK ALCOHOL WHILE ON THESE MEDICATIONS BRING ALL MEDICATION INTO EVERY APPOINTMENT. PROCEDURE CODES FA211 ESTABILISHED PATIENT [facility] CHARGE DISPOSITION & COMMUNICATION FOLLOW UP 3 MONTHS (REASON: MED MGMNT) ELECTRONICALLY SIGNED BY SHAKIRA PANIAGUA ON 08/15/2020 AT 08:12 PM EST DISCLAIMER : THIS IS A VISIT SUMMARY EXTRACTED FROM THE [employer] CHART. IT IS NOT A COPY OF THE [employer] PROGRESS NOTE. IVY
== END ==
LOC: M PAIN 11:00
PROVIDERS: ATTEND Nurse Practitioner Family
DX: M96.1 Postlaminectomy syndrome, not elsewhere classified (principal); M79.7 Fibromyalgia; Z91.040 Latex allergy status; Z79.891 Long term (current) use of opiate analgesic; Z79.899 Other long term (current) drug therapy

== ENCOUNTER → 2020-11-09 | Outpatient (CLI) | payer MEDICARE, MEDICAID ==
[~2020-11-09] MED LIST changes: +CLAR10CA3 PO; +ESTR625TA; +TIZA4TAB4
--- NOTE | 2020-11-11 06:23 | ECWPNPC ---
PATIENT NAME: APRIL PARMAR : 1965 GENDER: FEMALE VISIT DATE: 11/09/2020 DISCHARGE DATE: 11/09/20 1149 VISIT LOCKED DATE TIME: PHYSICIAN: JOHNATHON JOHN RESOURCE: JOHNATHON JOHN REASON FOR APPOINTMENT 1. MED MGMNT/RECENT MED CHANGES/UTOX HISTORY OF PRESENT ILLNESS GENERAL: HERE FOR ROUTINE F/U AND MEDICATION MANAGEMENT FOR CHRONIC GENERALIZED BACK PAIN.FINDS CURRENT CHRONIC PAIN MEDIATION HELPFUL AT REDUCING PAIN AND KEEPING HER COMFORTABLE .DENIES ADVERSE SIDE EFFECTS.BRINGS IN HER MEDICATION THAT IS APPROPRIATE FOR WHAT WAS DISPENSED. -. FALL RISK SCREENING: SCREENING : NO FALLS REPORTED IN THE LAST YEAR, ONE FALL LAST WEEK NO INJURIES, DID NOT GO TO THE ER FOR IT. PAIN SCREENING: PATIENT HAS A COMPLAINT OF ACUTE OR CHRONIC PAIN :YES LOCATION OF PAIN:NECK, LOW BACK INTENSITY OF PAIN (SCALE OF 1 TO 10):6 WHAT DOES YOUR PAIN FEEL LIKE:ACHING, BURNING, SHARP, STABBING, THROBBING, SHOOTING DURATION:CONTINOUS, CONSTANT, ALL DAY PAIN IS INCREASED BY:ACTIVITIES, PROLONGED STANDING PAIN IS DECREASED BY:USE OF PAIN MEDICATIONS NURSING NOTE: -. PAIN CENTER INTAKE QUESTIONS: DO YOU HAVE A HISTORY OF MRSA? :NO DO YOU TAKE A BLOOD THINNERS? :NO DO YOU HAVE ANY BLEEDING DISORDERS? :NO ANY NEW NUMBNESS OR WEAKNESS IN YOUR LEGS OR ARMS? :NO ANY PACEMAKER,DEFIBRILLATOR, OR DORSAL COLUMN STIMULATOR? :NO DO YOU HAVE ANY RASHES OR OPEN SORES? :NO ARE YOU ALLERGIC TO IV DYE? :NO ARE YOU DIABETIC? :NO ANY NEW PROBLEMS WITH YOUR MEDICATIONS? :NO HAVE YOU RECEIVED A VACCINE IN THE PAST 30 DAYS? :NO DO YOU PLAN TO RECEIVE A VACCINE IN THE NEXT 21 DAYS? :NO DO YOU NEED ANY PRESCRIPTION? :YES OXYCODONE AND OXYCONTIN DO YOU TAKE ANY IMMUNOSUPPRESSIVE MEDICATIONS? :NO IS THERE A CHANCE YOU COULD BE ? :NO ARE YOU BREAST FEEDING? :NO CURRENT MEDICATIONS TAKING PREMARIN 0.625 MG TABLET 1 TABLET ORALLY ONCE DAILY TAKING SYNTHROID 150 MCG TABLET 1 TABLET ORALLY ONCE A DAY TAKING LIPITOR 10 MG TABLET 1 TABLET ORALLY ONCE A DAY TAKING TRAZODONE HCL 50 MG TABLET 2 ORALLY BEFORE BEDTIME TAKING TIZANIDINE HCL 4 MG TABLET 1 TABLET NEEDED ORALLY THREE TIMES A DAY TAKING OXYCODONE HCL 15 MG TABLET 1 TABLET NEEDED ORALLY Q4HR PRN MDD5 TAKING OXYCONTIN 15 MG TABLET ER 12 HOUR ABUSE-DETERRENT 1 TABLET ORALLY Q8H MDD3 NOT-TAKING NUCYNTA ER 250 MG TABLET EXTENDED RELEASE 12 HOUR 1 TABLET ORALLY , DAILY AT BEDTIME MDD 1 NOT-TAKING ACCUTANE 30 MGS 1 TAB ORAL BID NOT-TAKING GABAPENTIN 100 MG CAPSULE DIRECTED ORALLY Q8H NOT-TAKING NUCYNTA ER 150 MG TABLET EXTENDED RELEASE 12 HOUR 1 TABLET ORALLY EVERY 12 HRS MDD2 MEDICATION LIST REVIEWED AND RECONCILED WITH THE PATIENT PAST MEDICAL HISTORY HEAD INJURY WITH SOME APHASIA DDD DJD FIBROMYALGIA INTERSTITIAL CYSTITIS POST LAMINECTOMY SYNDROME ALLERGIES LATEX (FOR ALLERGY USE ONLY): HIVES,TERRIBLE SORES - ALLERGY SOCIAL HISTORY GENERAL: TOBACCO USE ARE YOU A:NONSMOKER LATEX QUESTIONNAIRE LATEX ALLERGY : HAVE YOU EVER DEVELOPED ANY TYPE OF REACTION AFTER HANDLING LATEX PRODUCTS SUCH RUBBER GLOVES, CONDOMS, DIAPHRAGMS, BALLOONS, SOCKS, OR UNDERWEAR?YES SKIN BLISTERS - PLEASE INDICATE :RUBBER GLOVES LATEX ALLERGY : HAVE YOU EVER DEVELOPED ANY TYPE OF REACTION DURING OR AFTER DENTAL APPOINTMENT, VAGINAL/RECTAL EXAMINATION, SURGICAL PROCEDURE, OR ANY OTHER EXPOSURE?YES - PLEASE INDICATE :SURGICAL PROCEDURE LATEX RISK : HAVE YOU EVER HAD ANY DIFFICULTY BREATHING OR HIVES AFTER EATING OR HANDLING ANY FRUITS, OR VEGETABLES; SUCH KIWI, BANANAS, STONE FRUITS, OR CHESTNUTSNO LATEX RISK : DO YOU HAVE A PREVIOUS PERSONAL HISTORY OF MORE THAN NINE SURGERIES, SPINA BIFIDA, OR REPEATED CATHERIZATIONS? YES - PLEASE INDICATE : > 9 SURGERIES LATEX RISK : ARE YOU FREQUENTLY EXPOSED TO LATEX PRODUCTS IN YOUR OCCUPATION?NO DATE ASKED : 11/09/2020 ALCOHOL USE: NO. RECREATIONAL DRUG USE DRUG USE?NO CAFFEINE CAFFEINE USE?YES HOW OFTEN AND HOW MUCH? 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 REVIEWED WITH PATIENT 05/08/19 1135 JS. REVIEW OF SYSTEMS CONSTITUTIONAL: ANY RECENT FEVER NO . CHILLS NO . WEIGHT CHANGE OF UNKNOWN REASONS NO . GASTROENTEROLOGY: NEW UNEXPLAINABLE CHANGES IN BOWEL CONTROL NO . CONSTIPATION NO . GENITOURINARY: ANY NEW CHANGE IN BLADDER CONTROL? NO . NEUROLOGY: NEW ONSET DIZZINESS OR NEUROLOGICAL CHANGES NOT MENTIONED NO . NEW NUMBNESS OR PAIN PATTERNS NOT MENTIONED AND PERTINENT TO TODAY'S VISIT NO . CARDIOLOGY: NEW CHEST PRESSURE NO . PATIENT DENIES NO . RESPIRATORY: UNEXPLAINABLE COUGH NO . NEW SHORTNESS OF BREATH NO . VITAL SIGNS WT 150.0 LBS, HT 66 IN, BMI 24.21 INDEX, BP 121/67 MM HG, HR 62 /MIN, RR 18 /MIN, TEMP 97.9 F, OXYGEN SAT % 100%, SAFE IN ENV? (Y/N) YES, NA INITIALS AW [id number] MOREJON. EXAMINATION GENERAL EXAMINATION: GENERALAWAKE,ALERT ,PLEAASANT . PSYCHAFFECT NORMAL . LUNGS:LUNG AMBROCIO ARE CLEAR TO AUSCULTATION BILATERALLY. GOOD MOVEMENT OF AIR . HEART:S1, S2 IN A REGULAR RATE AND RHYTHM. NO SIGNIFICANT MURMURS, RUBS OR GALLOPS NOTED . ASSESSMENTS POST LAMINECTOMY SYNDROME - M96.1 (PRIMARY) TREATMENT POST LAMINECTOMY SYNDROME REFILL TRAZODONE HCL TABLET, 50 MG, 2, ORALLY, BEFORE BEDTIME, 90 DAY(S), 360, REFILLS 1 REFILL TIZANIDINE HCL TABLET, 4 MG, 1 TABLET NEEDED, ORALLY, THREE TIMES A DAY, 90 DAY(S), 270 TABLET, REFILLS 1 REFILL OXYCODONE HCL TABLET, 15 MG, 1 TABLET NEEDED, ORALLY, Q4HR PRN MDD5, 30 DAYS, 150, REFILLS 0 REFILL OXYCONTIN TABLET ER 12 HOUR ABUSE-DETERRENT, 15 MG, 1 TABLET, ORALLY, Q8H MDD3, 30 DAYS, 90, REFILLS 0 PROCEDURE CODES FA211 ESTABILISHED PATIENT NEW [facility] CHARGE DISPOSITION & COMMUNICATION FOLLOW UP 3 MONTHS (REASON: ED MGMNT/UTOX) ELECTRONICALLY SIGNED BY SHAKIRA PANIAGUA ON 11/10/2020 AT 04:04 PM EDT DISCLAIMER : THIS IS A VISIT SUMMARY EXTRACTED FROM THE [employer] CHART. IT IS NOT A COPY OF THE [employer] PROGRESS NOTE. IVY
== END ==
LOC: M PAIN 11:30
PROVIDERS: ATTEND Nurse Practitioner Family
DX: M96.1 Postlaminectomy syndrome, not elsewhere classified (principal); M79.7 Fibromyalgia; Z91.040 Latex allergy status; Z79.891 Long term (current) use of opiate analgesic; Z79.899 Other long term (current) drug therapy

== ENCOUNTER → 2021-04-26 | Outpatient (CLI) | payer MEDICARE | LOC: M PAIN 15:00 | PROVIDERS: ATTEND Nurse Practitioner Family | DX: M96.1 Postlaminectomy syndrome, not elsewhere classified (principal); M79.7 Fibromyalgia; Z91.040 Latex allergy status; Z79.891 Long term (current) use of opiate analgesic; Z79.899 Other long term (current) drug therapy ==

== ENCOUNTER → 2021-10-01 | Outpatient (CLI) | payer MEDICARE ==
[~2021-10-01] MED LIST changes: +TIZA10TA; -TIZA4TAB4
== END ==
LOC: M PAIN 11:00
PROVIDERS: ATTEND Nurse Practitioner Family
DX: M96.1 Postlaminectomy syndrome, not elsewhere classified (principal); M79.7 Fibromyalgia; Z91.040 Latex allergy status; Z79.891 Long term (current) use of opiate analgesic; Z79.899 Other long term (current) drug therapy

== ENCOUNTER → 2021-12-16 | Outpatient (CLI) | payer MEDICARE | LOC: M PAIN 11:45 | PROVIDERS: ATTEND Anesthesiology | DX: Z53.29 Procedure and treatment not carried out because of patient's decision for other reasons (principal) ==